=== PATIENT | female | born 1965 | race Caucasian/White ===

== ENCOUNTER 2016-11-12 07:39 | Emergency (ER) | payer SELFPAY ==
[~2016-11-12] VITALS: Ht 162.6 cm; Wt 62.1 kg
[2016-11-12] MEDS ORDERED: METOCLOPRAMIDE HCL 10 MG/2 ML VIAL. IV ONE (08:30)
[2016-11-12] MEDS ORDERED: IV NORMAL SALINE 500ML BAG 500 ML IV ONE (08:30)
[2016-11-12] MEDS ORDERED: DIPHENHYDRAMINE 50 MG/ML VIAL IVP ONE (08:30)
--- NOTE | 2016-11-12 08:43 | PHYS DOC ---
Past Medical History Past Medical History: Anemia, Bronchitis Additional Past Medical Histor: Breast Cancer, pleurisy Past Surgical History: Alcohol Use: Rarely Drug Use: Methamphetamine Adult General Chief Complaint Chief Complaint: ABDOMINAL PAIN HPI HPI Patient is a 51 year old female presents the emergency room with a complaint of upper abdominal pain and nausea and vomiting and began within the past 24 hours. Patient states last by mouth intake was approximately 2 days ago. Last bowel movement was a diarrheal bowel movement within the past 5 hours. Patient denies hematemesis or coffee-ground stools. She denies any black or bloody bowel movements. Patient denies any history gastrointestinal diseases or bowel obstructions. She states that she has only had 4 C-sections in the past. Patient admits to smoking methamphetamines within the past 48 hours. She states that she began using methamphetamines approximately 3 years ago and wants to quit. Of incidental note: Patient is here with an adult female that she identifies as a family member with complaint of atraumatic left anterior rib pain. Review of Systems Review of Systems Constitutional: Denies fever or chills [] Eyes: Denies change in visual acuity, redness, or eye pain [] HENT: Denies nasal congestion or sore throat [] Respiratory: Denies cough or shortness of breath [] Cardiovascular: No additional information not addressed in HPI [] GI: Patient reports upper abdominal pain. Patient denies this bilious, bloody or coffee-ground emesis. Patient denies black or bloody stools. : Denies dysuria or hematuria [] Musculoskeletal: Denies back pain or joint pain [] Integument: Denies rash or skin lesions [] Neurologic: Denies headache, focal weakness or sensory changes [] Endocrine: Denies polyuria or polydipsia [] Current Medications Current Medications Current Medications Medications (Trade) Dose Ordered Sig/Zofia Start Time Stop Time Status Last Admin Dose Admin Diphenhydramine HCl (Benadryl) 25 mg 1X ONCE 11/12/16 08:30 11/12/16 08:40 DC 11/12/16 09:34 25 MG Metoclopramide HCl (Reglan) 10 mg 1X ONCE 11/12/16 08:30 11/12/16 08:40 DC 11/12/16 09:34 10 MG Sodium Chloride (Iv Sodium Chloride 0.9% 500ml Bag) 500 ml @ 500 mls/hr 1X ONCE 1/8/17 08:30 11/12/16 09:29 DC 11/12/16 09:33 500 MLS/HR Allergies Allergies Allergies Coded Allergies Type Severity Reaction Last Updated Verified No Known Drug Allergies 11/12/16 No Physical Exam Physical Exam Constitutional: Well developed, well nourished, no acute distress, non-toxic appearance. HENT: Normocephalic, atraumatic, bilateral external ears normal, oropharynx moist, no oral exudates, nose normal. [] Eyes: PERRLA, EOMI, conjunctiva normal, no discharge. [] Neck: Normal range of motion, no tenderness, supple, no stridor. [] Cardiovascular:Heart rate regular rhythm, no murmur [] Lungs & Thorax: Bilateral breath sounds clear to auscultation [] Abdomen: Abdomen is soft and nondistended. There are hyperactive bowel sounds normal quadrants. There is no palpable defect to the abdominal wall or pulsatile mass. There is tenderness to palpation in the epigastric and right upper quadrant region. Skin: Warm, dry, no erythema, no rash. [] Back: No tenderness, no CVA tenderness. [] Extremities: No tenderness, no cyanosis, no clubbing, ROM intact, no edema. [] Neurologic: Alert and oriented X 3, normal motor function, normal sensory function, no focal deficits noted. [] Psychologic: Affect normal, judgement normal, mood normal. [] Current Patient Data Vital Signs Vital Signs Date Time Temp Pulse Resp B/P Pulse Ox O2 Delivery O2 Flow Rate FiO2 11/12/16 08:30 97.6 86 18 126/86 98 Room Air 97.6 Lab Values Laboratory Tests Test 11/12/16 09:14 White Blood Count 5.5x10^3/uL (4.0-11.0) Red Blood Count 4.30x10^6/uL (3.50-5.40) Hemoglobin 13.9g/dL (12.0-15.5) Hematocrit 40.9% (36.0-47.0) Mean Corpuscular Volume 95fL (79-100) Mean Corpuscular Hemoglobin 32pg (25-35) Mean Corpuscular Hemoglobin Concent 34g/dL (31-37) Red Cell Distribution Width 13.1% (11.5-14.5) Platelet Count 301x10^3/uL (140-400) Neutrophils (%) (Auto) 56% (31-73) Lymphocytes (%) (Auto) 32% (24-48) Monocytes (%) (Auto) 9% (0-9) Eosinophils (%) (Auto) 3% (0-3) Basophils (%) (Auto) 1% (0-3) Neutrophils # (Auto) 3.1x10^3uL (1.8-7.7) Lymphocytes # (Auto) 1.8x10^3/uL (1.0-4.8) Monocytes # (Auto) 0.5x10^3/uL (0.0-1.1) Eosinophils # (Auto) 0.2x10^3/uL (0.0-0.7) Basophils # (Auto) 0.0x10^3/uL (0.0-0.2) Urine Collection Type Void Urine Color Yellow Urine Clarity Clear Urine pH 5.5 Urine Specific [place] 1.025 Urine Protein Negativemg/dL (NEG-TRACE) Urine Glucose (UA) Negativemg/dL (NEG) Urine Ketones (Stick) Negativemg/dL (NEG) Urine Blood Negative (NEG) Urine Nitrite Negative (NEG) Urine Bilirubin Negative (NEG) Urine Urobilinogen Dipstick 0.2mg/dL (0.2 mg/dL) Urine Leukocyte Esterase Negative (NEG) Urine RBC 0/HPF (0-2) Urine WBC 0/HPF (0-4) Urine Squamous Epithelial Cells Mod/LPF Urine Bacteria Few/HPF (0-FEW) Urine Mucus Mod/LPF Sodium Level 140mmol/L (136-145) Potassium Level 3.7mmol/L (3.5-5.1) Chloride Level 102mmol/L (98-107) Carbon Dioxide Level 29mmol/L (21-32) Anion Gap 9 (6-14) Blood Urea Nitrogen 12mg/dL (7-20) Creatinine 0.6mg/dL (0.6-1.0) Estimated GFR (Cockcroft-Gault) 105.4 BUN/Creatinine Ratio 20 (6-20) Glucose Level 81mg/dL (70-99) Calcium Level 8.8mg/dL (8.5-10.1) Total Bilirubin 0.3mg/dL (0.2-1.0) Aspartate Amino Transferase (AST) 31U/L (15-37) Alanine Aminotransferase (ALT) 44U/L (14-59) Alkaline Phosphatase 100U/L (46-116) Total Protein 7.7g/dL (6.4-8.2) Albumin 3.9g/dL (3.4-5.0) Albumin/Globulin Ratio 1.0 (1.0-1.7) Lipase 168U/L (73-393) Urine Opiates Screen Neg (NEG) Urine Methadone Screen Neg (NEG) Urine Barbiturates Neg (NEG) Urine Phencyclidine Screen Neg (NEG) Urine Amphetamine/Methamphetamine Pos (NEG) Urine Benzodiazepines Screen Neg (NEG) Urine Cocaine Screen Neg (NEG) Urine Cannabinoids Screen Pos (NEG) Urine Ethyl Alcohol Neg (NEG) Laboratory Tests 11/12/16 09:14 Laboratory Tests 11/12/16 09:14 EKG EKG Twelve-lead EKG was performed at 931 shows a normal sinus rhythm with a rate of 67 bpm. Patient has no ST elevation or depression. MI interval is 80 ms with a QRS sikh of 76 ms and a QT duration 386 ms. Radiology/Procedures Radiology/Procedures [facility] [address] [place], [place] [id number] IMAGING REPORT Signed PATIENT: LEDY CASSIDY ACCOUNT: [id number] : 1965 LOCATION: ER AGE: 51 SEX: F EXAM STATUS: REG ER ORD. PHYSICIAN: REESE COLES REASON: epigastric/RUQ pain with vomiting PROCEDURE: ABDOMEN LTD Ultrasound of the abdomen limited. History: Epigastric right upper quadrant pain with vomiting Ultrasound was used to evaluate the right upper quadrant of the abdomen. Pancreas was normal in appearance. Vena cava is unremarkable. Liver is normal in size and appearance without a focal lesion. Gallbladder was normal without gallstones or gallbladder wall thickening. Common duct was normal measuring 4 mm. Right kidney is 11.8 cm in length without a mass or hydronephrosis. Impression: 1. Negative ultrasound of the liver, gallbladder and right upper quadrant. DICTATED and SIGNED BY: NATALIE LAGOS MD DATE: 11/12/16914 CC: REESE COLES; NO PCP ~ Course & Med Decision Making Course & Med Decision Making Patient is an uneventful stay in the emergency department. She is not called out for any complaints of increased abdominal pain. The been no episodes of nausea or vomiting. Ultrasound of her upper abdominal region shows no evidence of gallbladder wall thickening coming cholecystitis or gallstones. Patient does not have a fatty liver. Laboratory tests, with the exception of her urine drug screen, normal here today. Dragon Disclaimer Dragon Disclaimer This electronic medical record was generated, in whole or in part, using a voice recognition dictation system. Departure Departure Impression: Primary Impression: Abdominal pain Additional Impression: Polysubstance abuse Disposition: 01 HOME, SELF-CARE Condition: GOOD Patient Instructions: Abdominal Pain, Ihno-bi-Xmpr, Substance Abuse-Brief Additional Instructions: 1. The ultrasound of your abdomen and your laboratory test, with the exception of your urine drug screen, are normal here today. 2. Your urine drug screen does show the presence of methamphetamines and marijuana in your system. Marijuana is known to cause nausea and vomiting as it affects the way your stomach manages the food that she take in. 3. It is in your best interest to stop these behaviors. 4. Take the medication as prescribed. Clear liquids for the next 24 hours. 5. Review these discharge instructions; especially reasons to return to the emergency department. 6. A pamphlet is provided to you that has a list of primary care doctor's offices in the area in which she may call for follow-up assistance. Scripts Ondansetron (Zofran Odt)4 Mg Tab.rapdis4 Mg PO Q8HRS PRN NAUSEA/VOMITING #10 TAB Prov:REESE COLES 11/12/16 Problem Qualifiers REESE COLES Nov 12, 2016 08:43
--- NOTE | 2016-11-12 08:56 | ACF ---
Admission Forms Criteria ABDOMINAL PAIN Clinical Indications for Admission to Inpatient Care (Place 'X' for any and all applicable criteria): Admission is indicated for ANY ONE of the following(1)(2)(3)(4)(5): [X]I. Inpatient admission required rather than observation care (Also use Abdominal Pain: Observation Care, as appropriate) because of ANY ONE of the following: [X]a) Severe pain requiring acute inpatient management [ ]b) Identification of etiology/finding that requires inpatient care (eg, aortic dissection, free air) [ ]c) Absent bowel sounds with complete ileus(6) [ ]d) Suspected toxic megacolon [ ]e) Severe electrolyte abnormalities requiring inpatient care [ ]f) High fever or infection requiring inpatient admission as indicated by ANY ONE of following(7)(8): [ ] i) Appropriate outpatient or observational care antimicrobial treatment unavailable, not effective, or not feasible [ ] ii) Documented bacteremia [ ] iii) Temperature > 104.9 degrees F (oral) [ ] iv) T >103.1 F (oral) or < 96.8 F(rectal) that does not respond to all emergency treatment measures [ ]g) Signs of intestinal obstruction [B] [ ]h) Hemodynamic instability [ ]i) IV fluid to replace significant ongoing losses (greater than 3 L/m2 per day) (12)(13) [ ]j) Percutaneous or open drainage (eg, abscess, biliary tract ) procedures [ ]k) Parenteral nutrition regimen that must be implemented on inpatient basis [ ]l) Other condition,treatment or monitoring requiring inpatient admission. [ ]II. Peritoneal signs present [ ]III. Surgery needed that cannot be performed on an ambulatory basis. [ ]IV. Evaluation requires patient to not eat or drink for extended period ( eg, more than 24 hours). [ ]V. Contraindications and/or Inappropriate clinical situations for Observational Care in patients with abdominal pain, when ANY ONE of the following is required: [ ]a) Thorough evaluation is required to prevent catastrophic events due to delays in diagnosing (e.g.Mesenteric ischemia) 1,3 [ ]b) Patient with severe pathology or with chronic symptoms unlikely to improve in the ED stay (3) [ ]. General contraindications and/or Inappropriate clinical situations for Observational Care in patients with abdominal pain, when ANY ONE of the following is required: [ ]a) Prediction of prolongation of LOS based on ANY ONE of the following may be considered as a contraindication for observational care 2, 3, 4, 5, 6, 7, 8, 9, 10, 11 [ ]i) Age > 65 yrs. [ ]ii) Patient arriving by ambulance [ ]iii) Patient with high acuity [ ]iv) Patient requiring vital sign monitoring [ ]v) Patient on IV medication [ ]b) Systolic blood pressures 180mmHg 3,12 [ ]c) Patient with altered mental status including delirium and other alteration of consciousness, (3) [ ]d) Patient whose discharge disposition will be to a nursing home home or rehabilitation home should not be managed in Emergency Department Observation Unit. CMS rule requires 3 days hospital stay before such placement.3,13 [ ]e) Patient with failure to thrive due to broad array of etiologies 3,16,17 [ ]f) Inability to ambulate 3,14 Extended stay beyond goal length of stay may be needed for(2)(3): [ ]a) Persistent abdominal pain with suspected intra-abdominal process [ ]b) Diagnosed condition requiring continued stay (e.g., pancreatitis, complicated diverticulitis) [ ]c) Surgery (e.g., colectomy) The original [employer] content created by [employer] has been revised. The portions of the content which have been revised are identified through the use of italic text or in bold, and [facility] has neither reviewed nor approved the modified material.All other unmodified content is copyright [employer]. Please see references footnoted in the original [employer] edition 2016 Admission Criteria Met?: Yes SAHMA REYES Nov 12, 2016 08:56
--- NOTE | 2016-11-12 09:19 | RAD ---
Ultrasound of the abdomen limited. History: Epigastric right upper quadrant pain with vomiting Ultrasound was used to evaluate the right upper quadrant of the abdomen. Pancreas was normal in appearance. Vena cava is unremarkable. Liver is normal in size and appearance without a focal lesion. Gallbladder was normal without gallstones or gallbladder wall thickening. Common duct was normal measuring 4 mm. Right kidney is 11.8 cm in length without a mass or hydronephrosis. Impression: 1. Negative ultrasound of the liver, gallbladder and right upper quadrant.
[2016-11-12 09:37] LABS: CALCIUM 8.8 mg/dL (8.5-10.1); CREATININE 0.6 mg/dL (0.6-1.0); GFR 105.4; POTASSIUM 3.7 mmol/L (3.5-5.1)
[2016-11-12 09:38] LABS: BASO % 1 % (0-3); EOS % 3 % (0-3); HEMATOCRIT 40.9 % (36.0-47.0); HEMOGLOBIN 13.9 g/dL (12.0-15.5); LYMPH # 1.8 x10^3/uL (1.0-4.8); LYMPH % 32 % (24-48); MEAN CORPUSCULAR HEMOGLOBIN 32 pg (25-35); MEAN CORPUSCULAR HGB CONC 34 g/dL (31-37); MEAN CORPUSCULAR VOLUME 95 fL (79-100); MONO % 9 % (0-9); NEUT % 56 % (31-73); PLATELET COUNT 301 x10^3/uL (140-400); RED CELL DISTRIBUTION WIDTH 13.1 % (11.5-14.5); WHITE BLOOD COUNT 5.5 x10^3/uL (4.0-11.0)
[2016-11-12 09:48] LABS: ALBUMIN 3.9 g/dL (3.4-5.0); BARBITURATES NEG (NEG); BENZODIAZEPINES NEG (NEG); CANNABINOIDS POS (NEG); COCAINE NEG (NEG); METHADONE NEG (NEG); OPIATES NEG (NEG); PHENCYCLIDINE NEG (NEG); TOTAL BILIRUBIN 0.3 mg/dL (0.2-1.0); TOTAL PROTEIN 7.7 g/dL (6.4-8.2)
[2016-11-12 09:50] LABS: ETHANOL, URINE NEG (NEG)
[2016-11-12 09:53] LABS: BILIRUBIN,URINE NEGATIVE (NEG); GLUCOSE,URINE NEGATIVE (NEG); NITRITE,URINE NEGATIVE (NEG); PH,URINE 5.5; PROTEIN,URINE NEGATIVE (NEG-TRACE); UROBILINOGEN,URINE 0.2 mg/dL (0.2 mg/dL)
[2016-11-12 09:54] LABS: BACTERIA,URINE FEW /HPF (0-FEW); RBC,URINE 0 /HPF (0-2); SQUAMOUS EPITHELIAL CELL,UR MOD /LPF; WBC,URINE 0 /HPF (0-4)
[2016-11-12] MEDS ORDERED: ONDA4TAB10 PO (10:18)
--- NOTE | 2016-11-12 10:29 | EKG ---
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
[2016-11-12 11:40] VITALS: BP 103/60
== END 2016-11-12 11:56 | disposition home or self-care (01) ==
LOC: ER 07:39
DX: R10.11 Right upper quadrant pain (principal); F19.10 Other psychoactive substance abuse, uncomplicated; R11.2 Nausea with vomiting, unspecified; F15.10 Other stimulant abuse, uncomplicated
CPT/HCPCS: 36415; 76705; 80053; 81001; 83690; 85027; 93005; 96361; 96374; 96375; 99285; G0481; J1200; J2765; J7040

== ENCOUNTER 2016-12-02 17:44 | Emergency (ER) | payer SELFPAY ==
[~2016-12-02] VITALS: Ht 162.6 cm; Wt 62.1 kg
[~2016-12-02 17:44] MED LIST: ONDA4TAB10 PO
[2016-12-02] MEDS ORDERED: KETOROLAC TROMETHAMINE 60 MG/2 ML SYRINGE. IM ONE (18:45)
[2016-12-02] MEDS ORDERED: IPRATRPIUM/ALBUTEROL 0.5/2.5MG 3 ML NEBU. NEB ONE (18:45)
[2016-12-02] MEDS ORDERED: ONDANSETRON ODT 4 MG TAB.RAPDIS PO ONE (18:45)
--- NOTE | 2016-12-02 18:51 | PHYS DOC ---
Past Medical History Past Medical History: Anemia, Bronchitis Additional Past Medical Histor: Breast Cancer, pleurisy Past Surgical History: Alcohol Use: None Drug Use: Marijuana Adult General Chief Complaint Chief Complaint: Congestion HPI HPI 51-year-old female who's had worsening cough and congestion that she states all started about 3 weeks ago. She's had nausea and vomiting yesterday as well. She denies any vomiting today but has little to eat or drink. She also rates she has significant chest wall pain worse with cough and deep breathing. She also complains of some mild left earache patient denies any health problems other than chronic bronchitis. She states she smokes several cigarettes a day. 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 She states she has not used meth since that time. She has not taken any medications for her symptoms. Review of Systems Review of Systems Constitutional: Has fever or chills [] Eyes: Denies change in visual acuity, redness, or eye pain [] HENT: Denies nasal congestion or sore throat [] Respiratory: Has cough, has shortness of breath [] Cardiovascular: No additional information not addressed in HPI [] GI: Denies abdominal pain, has nausea, has vomiting, denies bloody stools or diarrhea [] : Denies dysuria or hematuria [] Musculoskeletal: Denies back pain or joint pain [] Integument: Denies rash or skin lesions [] Neurologic: Denies headache, focal weakness or sensory changes [] Endocrine: Denies polyuria or polydipsia [] Current Medications Current Medications Current Medications Medications (Trade) Dose Ordered Sig/[facility] Start Time Stop Time Status Last Admin Dose Admin Albuterol/ Ipratropium (Duoneb) 3 ml 1X ONCE 12/02/16 18:45 12/02/16 18:46 DC 12/02/16 18:53 3 ML Ketorolac Tromethamine (Toradol Im) 60 mg 1X ONCE 12/02/16 18:45 12/02/16 18:46 DC 12/02/16 18:49 60 MG Ondansetron HCl (Zofran Odt) 4 mg 1X ONCE 12/02/16 18:45 12/02/16 18:46 DC 12/02/16 18:49 4 MG Allergies Allergies Allergies Coded Allergies Type Severity Reaction Last Updated Verified No Known Drug Allergies 11/12/16 No Physical Exam Physical Exam Constitutional: Well developed, well nourished, no acute distress, non-toxic appearance. [] HENT: Normocephalic, atraumatic, bilateral external ears normal, oropharynx moist, no oral exudates, nose normal, left sided otitis media with injected TM on left. [] Eyes: PERRLA, EOMI, conjunctiva normal, no discharge. [] Neck: Normal range of motion, no tenderness, supple, no stridor. [] Cardiovascular:Heart rate regular rhythm, no murmur [] Lungs & Thorax: Bilateral breath sounds clear to auscultation [] Abdomen: Bowel sounds normal, soft, no tenderness, no masses, no pulsatile masses. [] Skin: Warm, dry, no erythema, no rash. [] Back: No tenderness, no CVA tenderness. [] Extremities: No tenderness, no cyanosis, no clubbing, ROM intact, no edema. [] Neurologic: Alert and oriented X 3, normal motor function, normal sensory function, no focal deficits noted. [] Psychologic: Affect normal, judgement normal, mood normal. [] Current Patient Data Vital Signs Vital Signs Date Time Temp Pulse Resp B/P Pulse Ox O2 Delivery O2 Flow Rate FiO2 12/02/16 19:52 92 108/54 97 Room Air 12/02/16 18:24 17 12/02/16 18:00 97.6 97.6 Lab Values Laboratory Tests Test 12/02/16 18:53 Influenza Type A Antigen Negative (NEGATIVE) Influenza Type B Antigen Negative (NEGATIVE) EKG EKG EKG as interpreted by me shows a sinus rhythm with a rate of 85 bpm. There are no ischemic findings on this EKG. Radiology/Procedures Radiology/Procedures One view of the chest as interpreted by me does not reveal an acute cardiopulmonary process Course & Med Decision Making Course & Med Decision Making Pertinent Labs and Imaging studies reviewed. (See chart for details) This 81-year-old female who's having ongoing chest pain worse with deep breathing and cough has been there for the last several weeks will receive a portable view of her chest rule out any abnormality. Her EKG appeared unremarkable. Flu swabs are negative. I do not see an indication at this time to perform any laboratory workup. I will administer an IM Toradol and Zofran this patient. Flu swabs be taken. Ultimately she'll be discharged home with a course of anti-inflammatories, albuterol inhaler, amoxicillin for a left otitis media, and Tessalon Perles for cough. Upon my final reassessment, the patient felt much improved and she'll be discharged with the prescriptions already described. She will follow closely with her primary doctor as discussed. Jihan Disclaimer Dragon Disclaimer This electronic medical record was generated, in whole or in part, using a voice recognition dictation system. Departure Departure Impression: Primary Impression: Cough Additional Impression: Nausea & vomiting Disposition: 01 HOME, SELF-CARE Admitting Physician: Other Condition: STABLE Referrals: NO PCP (PCP) Patient Instructions: Cough, Adult, [id number] Additional Instructions: Please take your medications as prescribed. Return to the ER if you develop any worsening of your symptoms. Follow up closely with your primary doctor in 2-3 days for your symptoms. Scripts Ibuprofen 800 Mg [id number] Mg PO PRN Q6HRS PRN INFLAMMATION #20 TAB Prov:VIRGILIO ARITA DO 12/02/16 Amoxicillin 500 Mg [id number] Mg PO BID #20 TAB Ref 0 Prov:VIRGILIO ARITA DO 12/02/16 Benzonatate (Tessalon Perle)100 Mg [id number] Mg PO TID PRN COUGH #15 CAP Prov:VIRGILIO ARITA DO 12/02/16 Ondansetron Hcl (Zofran)4 Mg Tablet4 Mg PO BID PRN NAUSEA/VOMITING #14 TAB Prov:VIRGILIO ARITA DO 12/02/16 Problem Qualifiers VIRGILIO ARITA DO Dec 02, 2016 18:51
[2016-12-02 19:36] LABS: OBC FLU VALID
[2016-12-02 19:52] VITALS: BP 108/54
[2016-12-02] MEDS ORDERED: BENZ100C PO (20:02)
[2016-12-02] MEDS ORDERED: ONDA4TAB7 PO (20:02)
[2016-12-02] MEDS ORDERED: AMOX500T PO (20:02)
[2016-12-02] MEDS ORDERED: IBUP-1060 PO (20:03)
--- NOTE | 2016-12-03 08:17 | RAD ---
EXAM: Chest, single view. HISTORY: Shortness of breath. COMPARISON: None. FINDINGS: A frontal view of the chest is obtained. There is no infiltrate, effusion or pneumothorax. The heart is normal in size. IMPRESSION: No acute pulmonary finding.
--- NOTE | 2016-12-03 12:04 | EKG ---
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
== END 2016-12-02 20:09 | disposition home or self-care (01) ==
LOC: ER 17:44
DX: R05 Cough (principal); R11.2 Nausea with vomiting, unspecified; R07.89 Other chest pain; R06.02 Shortness of breath; R09.81 Nasal congestion; H92.02 Otalgia, left ear; F17.210 Nicotine dependence, cigarettes, uncomplicated; F12.10 Cannabis abuse, uncomplicated
CPT/HCPCS: 71010; 87804; 93005; 94250; 94640; 96372; 99285; J1885; J7620; Q0162

== ENCOUNTER 2017-01-11 18:31 | Emergency (ER) | payer SELFPAY ==
[~2017-01-11] VITALS: Ht 162.6 cm; Wt 61.2 kg
[~2017-01-11 18:31] MED LIST changes: +AMOX500T PO; +BENZ100C PO; +IBUP-1060 PO; +ONDA4TAB7 PO
[2017-01-11 19:39] VITALS: BP 107/61
[2017-01-11] MEDS ORDERED: PREDNISONE 10 MG TABLET PO ONE (19:45)
[2017-01-11] MEDS ORDERED: ALBUTEROL SULFATE 2.5 MG/3 ML NEBU. NEB ONE (19:45)
[2017-01-11] MEDS ORDERED: PRED-220 PO (20:19)
[2017-01-11] MEDS ORDERED: PROAIR HFA8.5 GM INH (20:19)
--- NOTE | 2017-01-11 20:19 | PHYS DOC ---
Past Medical History Past Medical History: Anemia, Bronchitis, Depression, Other Additional Past Medical Histor: Breast Cancer, pleurisy, drug abuse, joint pain Past Surgical History: Alcohol Use: None Drug Use: None Adult General Chief Complaint Chief Complaint: CHEST PAIN-NON CARDIAC NATURE HPI HPI Patient is a 51 year old female who presents with complaint of left-sided chest pain. Patient states that she is having upper chest wall pain from coughing. Patient has had persistent cough for the past 3 weeks. Patient denies any associated fevers. Patient's cough has been nonproductive. Patient states that she has had mild shortness of breath and wheezing. Patient has history of recurrent bronchitis. Patient states that she is a long-time cigarette smoker. Patient does not follow the primary doctor at this time. Patient rates her pain in her chest as 8 out of 10 with coughing. Patient denies any substernal chest pain, nausea, diaphoresis, or shortness of breath at rest. The patient has been taking ibuprofen and [id number] cough medication help with her symptoms with no significant relief. Review of Systems Review of Systems Constitutional: Denies fever or chills [] Eyes: Denies change in visual acuity, redness, or eye pain [] HENT: Denies nasal congestion or sore throat [] Respiratory: Cough, shortness of breath with exertion [] Cardiovascular: Left sided chest pain [] GI: Denies abdominal pain, nausea, vomiting, bloody stools or diarrhea [] : Denies dysuria or hematuria [] Musculoskeletal: Denies back pain or joint pain [] Integument: Denies rash or skin lesions [] Neurologic: Denies headache, focal weakness or sensory changes [] Current Medications Current Medications Current Medications Medications (Trade) Dose Ordered Sig/Zofia Start Time Stop Time Status Last Admin Dose Admin Albuterol Sulfate (Ventolin Neb Soln) 5 mg 1X ONCE 01/11/17 19:45 01/11/17 19:46 DC 01/11/17 20:09 5 MG Prednisone (Prednisone) 50 mg 1X ONCE 01/11/17 19:45 01/11/17 19:46 DC 01/11/17 19:57 50 MG Allergies Allergies Allergies Coded Allergies Type Severity Reaction Last Updated Verified No Known Drug Allergies 11/12/16 No Physical Exam Physical Exam Constitutional: Alert, afebrile, appears in mild discomfort. [] HENT: Normocephalic, atraumatic, bilateral external ears normal, oropharynx moist, no oral exudates, nose normal. [] Eyes: PERRLA, EOMI, conjunctiva normal, no discharge. [] Neck: Normal range of motion, no tenderness, supple, no stridor. [] Cardiovascular:Heart rate regular rhythm, no murmur [] Lungs & Thorax: Moderately her strict air movement bilaterally, expiratory wheezes bilaterally, left anterior chest wall tenderness to palpation causing reproducible pain [] Abdomen: Bowel sounds normal, soft, no tenderness, no masses, no pulsatile masses. [] Skin: Warm, dry, no erythema, no rash. [] Back: No tenderness, no CVA tenderness. [] Extremities: No tenderness, no cyanosis, no clubbing, ROM intact, no edema. [] Neurologic: Alert and oriented X 3, normal motor function, normal sensory function, no focal deficits noted. [] Current Patient Data Vital Signs Vital Signs Date Time Temp Pulse Resp B/P Pulse Ox O2 Delivery O2 Flow Rate FiO2 01/11/17 20:09 95 Room Air 01/11/17 19:39 82 22 107/61 01/11/17 18:46 97.7 97.7 EKG EKG Interpreted by me: Heart rate 80, sinus rhythm, normal intervals, normal axis, no acute ST/T-wave abnormalities present [] Radiology/Procedures Radiology/Procedures Two-view chest x-ray interpreted by me: No infiltrate, mild to moderate hyperexpansion of bilateral lung mitchell, no effusion, normal cardiac silhouette [] Course & Med Decision Making Course & Med Decision Making Pertinent Labs and Imaging studies reviewed. (See chart for details) Patient was given albuterol therapy and oral prednisone in the emergency department. I spoke with patient regarding likely presence of undiagnosed COPD in this patient given the patient's long history of tobacco use, chronic persistent cough, and chest x-ray findings. The patient will be continued on prednisone and albuterol as outpatient. I counseled the patient on smoking cessation and explained to her the potential link between her smoking and her current lung problems. Patient voiced understanding of this. The patient was recommended follow-up with primary care in the next 3-5 days and return to emergency department for any worsening symptoms. Patient voiced understanding and in agreement with treatment plan. Dragon Disclaimer Dragon Disclaimer This electronic medical record was generated, in whole or in part, using a voice recognition dictation system. Departure Departure Impression: Primary Impression: Bronchitis Additional Impression: Chest wall pain Disposition: 01 HOME, SELF-CARE Condition: IMPROVED Referrals: NO PCP (PCP) Patient Instructions: Bronchitis Additional Instructions: Follow-up with your primary doctor in the next 3-5 days if symptoms are not improving. Return to the emergency department for any worsening symptoms. Scripts Albuterol Sulfate (Proair Hfa Inhaler)8.5 Gm Hfa.aer.ad2 Puff INH Q4-6HRS PRN SHORTNESS OF BREATH #1 INHALER Ref 0 Prov:JOHN SURESH MD 01/11/17 Prednisone 10 Mg [id number] Mg PO UD PREDNISONE TAPER #39 TAB Ref 0 Take 3 tablets by mouth twice a day for 3 days, then take 2 tablets by mouth twice a day for 3 days, then take 1 tablet by mouth twice a day for 3 days, then take 1 tablet by mouth daily x 3 days, then stop. Prov:JOHN SURESH MD 01/11/17 Problem Qualifiers JOHN SURESH MD Jan 11, 2017 20:19
--- NOTE | 2017-01-12 06:31 | EKG ---
[facility] [address] [place] [address] Test Date: 2017-01-11 Test Time: 18:44:28 Pat Name: LEDY CASSIDY Department: Room: Gender: F Car Dumper: : 1965 Requested By: JOHN SURESH Order Number: [id number] Reading MD: Measurements Intervals [place] Rate: 80 P: 55 CA: 192 QRS: 66 QRSD: 80 T: 76 QT: 386 QTc: 449 Interpretive Statements SINUS RHYTHM QRS(T) CONTOUR ABNORMALITY CONSIDER ANTEROLATERAL MYOCARDIAL DAMAGE RI6.01 Unconfirmed report No previous ECG available for comparison
--- NOTE | 2017-01-12 07:59 | RAD ---
Chest, 2 views, 01/11/2017: History: Cough and chest pain Comparison is made to a study from 12/02/2016. The heart size and pulmonary vascularity are normal. No pulmonary infiltrates are seen. There is no evidence of pleural fluid. Mild spurring is present in the spine. IMPRESSION: No acute cardiopulmonary abnormality is detected.
== END 2017-01-11 20:39 | disposition home or self-care (01) ==
LOC: ER 18:31
DX: J40 Bronchitis, not specified as acute or chronic (principal); F17.210 Nicotine dependence, cigarettes, uncomplicated; F32.9 Major depressive disorder, single episode, unspecified
CPT/HCPCS: 71020; 93005; 94250; 94640; 99284; J7512

== ENCOUNTER 2017-03-28 12:47 | Emergency (ER) | payer SELFPAY ==
[~2017-03-28] VITALS: Ht 162.6 cm; Wt 81.6 kg
[~2017-03-28 12:47] MED LIST changes: +PRED-220 PO; +PROAIR HFA8.5 GM INH
[2017-03-28 13:38] VITALS: BP 140/77
[2017-03-28] MEDS ORDERED: IBUPROFEN 600 MG TABLET. PO ONE ×2 (13:45→13:51)
--- NOTE | 2017-03-28 13:54 | PHYS DOC ---
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 She does report a history of psoriasis but not any significant history of arthritis yet. Denies diabetes. Denies any fever. She did have some soft tissue swelling of her feet yesterday and that improved with elevation of the feet. She was at work today and they noted that she was limping and so they've asked that she get evaluated in the emergency department today. Review of Systems Review of Systems Constitutional: Denies fever or chills [] Eyes: Denies change in visual acuity, redness, or eye pain [] HENT: Denies nasal congestion or sore throat [] Respiratory: Denies cough or shortness of breath [] Cardiovascular: No additional information not addressed in HPI [] GI: Denies abdominal pain, nausea, vomiting, bloody stools or diarrhea [] : Denies dysuria or hematuria [] Musculoskeletal: Denies back pain or joint pain [] Integument: Denies rash or skin lesions [] Neurologic: Denies headache, focal weakness or sensory changes [] Endocrine: Denies polyuria or polydipsia [] Current Medications Current Medications Current Medications Medications (Trade) Dose Ordered Sig/Zofia Start Time Stop Time Status Last Admin Dose Admin Ibuprofen (Motrin) 600 mg STK-MED ONCE 03/28/17 13:51 03/28/17 13:52 DC Allergies Allergies Allergies Coded Allergies Type Severity Reaction Last Updated Verified No Known Drug Allergies 11/12/16 No Physical Exam Physical Exam Constitutional: Well developed, well nourished, no acute distress, non-toxic appearance. [] HENT: Normocephalic, atraumatic, bilateral external ears normal, oropharynx moist, no oral exudates, nose normal. [] Eyes: PERRLA, EOMI, conjunctiva normal, no discharge. [] Neck: Normal range of motion, no tenderness, supple, no stridor. [] Cardiovascular:Heart rate regular rhythm, no murmur [] Lungs & Thorax: Bilateral breath sounds clear to auscultation [] Abdomen: Bowel sounds normal, soft, no tenderness, no masses, no pulsatile masses. [] Skin: Warm, dry, no erythema, no rash. [] Back: No tenderness, no CVA tenderness. [] Extremities: No tenderness, no cyanosis, no clubbing, ROM intact, no edema. [ Examination of bilateral feet reveal 2+ pulses in the foot and ankle, no soft tissue swelling or redness, mild tenderness to palpation, no bruising.] Neurologic: Alert and oriented X 3, normal motor function, normal sensory function, no focal deficits noted. [] Psychologic: Affect normal, judgement normal, mood normal. [] Current Patient Data Vital Signs Vital Signs Date Time Temp Pulse Resp B/P (MAP) Pulse Ox O2 Delivery O2 Flow Rate FiO2 03/28/17 13:38 97.6 78 18 140/77 (98) 95 Room Air 97.6 Lab Values Laboratory Tests Test 03/28/17 13:47 Glucose (Fingerstick) 121 mg/dL (70-99) H Accu-Chek 121 EKG EKG [] Radiology/Procedures Radiology/Procedures Bilateral foot x-rays negative for fracture or dislocation [] Course & Med Decision Making Course & Med Decision Making Pertinent Labs and Imaging studies reviewed. (See chart for details) Etiology of pain is likely psoriatic arthritis. Exclude diabetic neuropathy which we did do with blood sugar of 121, x-rays to exclude fractures or Charcot joint or severe degenerative arthritis. [] Dragon Disclaimer Dragon Disclaimer This electronic medical record was generated, in whole or in part, using a voice recognition dictation system. Departure Departure Impression: Primary Impression: Psoriatic arthritis Additional Impression: Bilateral foot pain Disposition: HOME, SELF-CARE Condition: STABLE Referrals: NO PCP (PCP) Scripts Ibuprofen (IBUPROFEN) 600 Mg Tablet 600 MG PO PRN Q8HRS Y for INFLAMMATION for 10 Days, #30 TAB Prov: JOHN GOLDBERG MD 03/28/17 Problem Qualifiers JOHN GOLDBERG MD March 28, 2017 13:54
--- NOTE | 2017-03-28 14:09 | RAD ---
Bilateral feet, 6 views, 03/28/2017: History: Foot pain No fracture or dislocation is identified. No destructive bony lesion is seen. There is only minimal spurring at the midfoot level. There is mild subcutaneous edema bilaterally. IMPRESSION: No acute bony abnormality is detected.
[2017-03-28] MEDS ORDERED: IBUP-1007 PO (15:19)
== END 2017-03-28 15:24 | disposition home or self-care (01) ==
LOC: ER 12:47
DX: L40.50 Arthropathic psoriasis, unspecified (principal); M79.671 Pain in right foot; M79.672 Pain in left foot; J44.9 Chronic obstructive pulmonary disease, unspecified; F32.9 Major depressive disorder, single episode, unspecified; M19.90 Unspecified osteoarthritis, unspecified site; F17.200 Nicotine dependence, unspecified, uncomplicated
CPT/HCPCS: 73630; 82962; 99285

== ENCOUNTER 2017-04-07 19:15 | Emergency (ER) | payer SELFPAY ==
[~2017-04-07] VITALS: Ht 162.6 cm; Wt 81.6 kg
[~2017-04-07 19:15] MED LIST changes: +IBUP-1007 PO
[2017-04-07 19:30] VITALS: BP 139/83
[2017-04-07] MEDS ORDERED: LIDOCAINE 1% / SOD BICARB 8.4% 20 ML VIAL. IJ ONE (19:45)
[2017-04-07] MEDS ORDERED: HYDROcodone/APAP 5/325MG 1 TAB TABLET PO ONE (19:45)
[2017-04-07] MEDS ORDERED: DIPHTH,PERTUSS(ACELL),TET TOX 0.5 ML DISP.SYRIN. VAX IM ONE (19:45)
[2017-04-07] MEDS ORDERED: ACET-704 PO (20:46)
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
== END 2017-04-07 20:55 | disposition home or self-care (01) ==
LOC: ER 19:15
DX: S51.011A Laceration without foreign body of right elbow, initial encounter (principal); J44.9 Chronic obstructive pulmonary disease, unspecified; M19.90 Unspecified osteoarthritis, unspecified site; L40.9 Psoriasis, unspecified; W17.89XA Other fall from one level to another, initial encounter; Y93.55 Activity, bike riding; Y92.89 Other specified places as the place of occurrence of the external cause; Y99.8 Other external cause status
CPT/HCPCS: 12002; 90471; 90715; 99283-25

== ENCOUNTER 2017-05-22 17:23 | Emergency (ER) | payer SELFPAY ==
[~2017-05-22] VITALS: Ht 162.6 cm; Wt 82.6 kg
[~2017-05-22 17:23] MED LIST changes: +ACET-704 PO
[2017-05-22] MEDS ORDERED: HYDROmorphone 2 MG/ML VIAL IV/SQ PRN (17:45)
[2017-05-22] MEDS ORDERED: IV NORMAL SALINE 1000ML BAG 1,000 ML IV SCH (17:45)
[2017-05-22] MEDS ORDERED: 0.9 % SODIUM CHLORIDE 10 ML DISP.SYRIN. IV PRN (17:45)
[2017-05-22] MEDS ORDERED: ASPIRIN CHEWABLE 81 MG TABLET. PO ONE (17:45)
[2017-05-22] MEDS ORDERED: NITROGLYCERIN SUBLINGUAL 0.4 MG BOTTLE OF 25. SL PRN (17:45)
[2017-05-22 17:57] LABS: BASO # 0.1 x10^3/uL (0.0-0.2); BASO % 1 % (0-3); EOS % 2 % (0-3); HEMATOCRIT 38.1 % (36.0-47.0); HEMOGLOBIN 13.2 g/dL (12.0-15.5); LYMPH # 3.4 x10^3/uL (1.0-4.8); LYMPH % 34 % (24-48); MEAN CORPUSCULAR HEMOGLOBIN 33 pg (25-35); MEAN CORPUSCULAR HGB CONC 35 g/dL (31-37); MEAN CORPUSCULAR VOLUME 96 fL (79-100); MONO % 7 % (0-9); NEUT % 57 % (31-73); PLATELET COUNT 275 x10^3/uL (140-400); RED BLOOD COUNT 3.97 x10^6/uL (3.50-5.40); RED CELL DISTRIBUTION WIDTH 12.7 % (11.5-14.5); WHITE BLOOD COUNT 10.2 x10^3/uL (4.0-11.0)
--- NOTE | 2017-05-22 18:12 | PHYS DOC ---
Past Medical History Past Medical History: Anxiety, Arthritis, Cancer, Depression, Other Additional Past Medical Histor: Psoriasis,BRONCHIAL ASTHMA,BREAST CA Past Surgical History: , Other Additional Past Surgical Histo: BREAST CA SX-LUMP REMOVED, L ARM, R FOOT Smoking: Cigarettes, Less than 1pk/day Additional Information: 0.5 PPD Alcohol Use: Rarely Drug Use: Methamphetamine, Other Social History Narrative: 9 MONTHS CLEAN Adult General Chief Complaint Chief Complaint: CHEST PAIN HPI HPI Is a pleasant 51-year-old female with a history of anxiety, depression and prior breast cancer who presents with chest pain that began 60 minutes prior to arrival. She was at home cleaning her house when she sat down to picker tender helper her dog and she felt a sudden onset of chest pain that began of her left breast. It radiates to her neck and her left shoulder. She describes as a chest pressure to perform the prior diagnosis of pleurisy she had some time ago. She denies any cough, URI symptoms, trauma or direct recent history of travel. Patient denies any fever, chills, nausea, vomiting, dizziness. She feels mildly anxious with the symptoms and she is worried that is her heart. The chest is worse with deep breathing and sitting forward. It is better with laying down flat. Normally this chest pain gets better with rest but this is different. This patient describes the pain as moderate 8 of 10. It does not really make her short of breath but it makes her splint because the pain is so severe. Differential diagnosis for chest pain: Pericarditis, myocarditis, endocarditis, pneumothorax, pneumonia, aortic dissection, esophageal spasm, esophagitis, peptic ulcer disease, acute coronary syndrome, mediastinitis, Boerhaave syndrome , musculoskeletal chest wall pain, costochondritis, intercostal strain, rib fracture, pulmonary contusion, pneumonitis, pleural effusion, pericardial effusion, pericardial tamponode, and pleurisy. He slept EKG, chest x-ray therapy workup done. Since she's had a prior history of cancer she has at risk for PE Review of Systems Review of Systems Constitutional: Denies fever or chills [] Eyes: Denies change in visual acuity, redness, or eye pain [] HENT: Denies nasal congestion or sore throat [] Respiratory: Denies cough or shortness of breath [] Cardiovascular: No additional information not addressed in HPI [] GI: Denies abdominal pain, nausea, vomiting, bloody stools or diarrhea [] : Denies dysuria or hematuria [] Musculoskeletal: Denies back pain or joint pain [] Integument: Denies rash or skin lesions [] Neurologic: Denies headache, focal weakness or sensory changes [] Endocrine: Denies polyuria or polydipsia [] Current Medications Current Medications Current Medications Medications (Trade) Dose Ordered Sig/Zofia Start Time Stop Time Status Last Admin Dose Admin Aspirin (Children'S Aspirin) 324 mg 1X ONCE 05/22/17 17:45 05/22/17 17:49 DC 05/22/17 18:04 324 MG Hydromorphone HCl (Dilaudid) 1 mg PRN Q15MIN PRN 05/22/17 17:45 05/23/17 17:44 05/22/17 18:05 1 MG Lorazepam (Ativan) 1 mg 1X ONCE 05/22/17 17:45 05/22/17 17:49 DC 05/22/17 18:04 1 MG Nitroglycerin (Nitrostat) 0.4 mg PRN Q5MIN PRN 05/22/17 17:45 05/23/17 17:44 05/22/17 18:04 0.4 MG Sodium Chloride (Normal Saline Flush) 10 ml QSHIFT PRN 05/22/17 17:45 05/22/17 18:07 10 ML Allergies Allergies Allergies Coded Allergies Type Severity Reaction Last Updated Verified No Known Drug Allergies 11/12/16 No Physical Exam Physical Exam Patient vital signs reviewed by me demonstrates borderline hypertension otherwise normal vitals. Constitutional: Well developed, well nourished, she feels very uncomfortable she is anxious and splinting. Her breathing secondary to pain. HENT: Normocephalic, atraumatic, bilateral external ears normal, oropharynx moist, no oral exudates, nose normal. [] Eyes: PERRLA, EOMI, conjunctiva normal, no discharge. [] Neck: Normal range of motion, no tenderness, supple, no stridor. [] Cardiovascular:Heart rate regular rhythm, no murmur [] was considerable chest wall pain left upper breast. There are no signs of trauma no redness or erythema no rash. Her pain is significantly increased with motion and direct pressure over the left shoulder. Lungs & Thorax: Bilateral breath sounds clear to auscultation [] Abdomen: Bowel sounds normal, soft, no tenderness, no masses, no pulsatile masses. [] Skin: Warm, dry, no erythema, no rash. [] Back: No tenderness, no CVA tenderness. [] Extremities: No tenderness, no cyanosis, no clubbing, ROM intact, no edema. [] Neurologic: Alert and oriented X 3, normal motor function, normal sensory function, no focal deficits noted. [] Psychologic: He is anxious. Judgment is normal Current Patient Data Vital Signs Vital Signs Date Time Temp Pulse Resp B/P (MAP) Pulse Ox O2 Delivery O2 Flow Rate FiO2 05/22/17 18:25 86 19 121/76 (91) 95 Room Air 05/22/17 17:28 97.7 97.7 Lab Values Laboratory Tests Test 05/22/17 17:45 05/22/17 19:15 White Blood Count 10.2 x10^3/uL (4.0-11.0) Red Blood Count 3.97 x10^6/uL (3.50-5.40) Hemoglobin 13.2 g/dL (12.0-15.5) Hematocrit 38.1 % (36.0-47.0) Mean Corpuscular Volume 96 fL (79-100) Mean Corpuscular Hemoglobin 33 pg (25-35) Mean Corpuscular Hemoglobin Concent 35 g/dL (31-37) Red Cell Distribution Width 12.7 % (11.5-14.5) Platelet Count 275 x10^3/uL (140-400) Neutrophils (%) (Auto) 57 % (31-73) Lymphocytes (%) (Auto) 34 % (24-48) Monocytes (%) (Auto) 7 % (0-9) Eosinophils (%) (Auto) 2 % (0-3) Basophils (%) (Auto) 1 % (0-3) Neutrophils # (Auto) 5.8 x10^3uL (1.8-7.7) Lymphocytes # (Auto) 3.4 x10^3/uL (1.0-4.8) Monocytes # (Auto) 0.7 x10^3/uL (0.0-1.1) Eosinophils # (Auto) 0.2 x10^3/uL (0.0-0.7) Basophils # (Auto) 0.1 x10^3/uL (0.0-0.2) Sodium Level 139 mmol/L (136-145) Potassium Level 4.4 mmol/L (3.5-5.1) Chloride Level 103 mmol/L (98-107) Carbon Dioxide Level 22 mmol/L (21-32) Anion Gap 14 (6-14) Blood Urea Nitrogen 10 mg/dL (7-20) Creatinine 0.5 mg/dL (0.6-1.0) L Estimated GFR (Cockcroft-Gault) 130.1 Glucose Level 92 mg/dL (70-99) Calcium Level 9.4 mg/dL (8.5-10.1) Magnesium Level 2.1 mg/dL (1.8-2.4) Total Bilirubin 0.2 mg/dL (0.2-1.0) Direct Bilirubin < 0.1 mg/dL (0.0-0.2) Aspartate Amino Transferase (AST) 23 U/L (15-37) Alanine Aminotransferase (ALT) 24 U/L (14-59) Alkaline Phosphatase 99 U/L (46-116) Creatine Kinase 185 U/L (26-192) Creatine Kinase MB (Mass) 0.6 ng/mL (0.0-3.6) Creatine Kinase MB Relative Index 0.3 % (0-4) Troponin I Quantitative < 0.017 ng/mL (0.000-0.055) AF-Exy-G-Type Natriuretic Peptide 51 pg/mL (0-124) Total Protein 7.5 g/dL (6.4-8.2) Albumin 3.9 g/dL (3.4-5.0) Lipase 145 U/L (73-393) Thyroid Stimulating Hormone (TSH) 2.742 uIU/mL (0.358-3.74) Serum Test, Qualitative Negative (NEG) Urine Collection Type Unknown Urine Color Yellow Urine Clarity Clear Urine pH 6.5 Urine Specific [place]arton 1.020 Urine Protein Negative mg/dL (NEG-TRACE) Urine Glucose (UA) Negative mg/dL (NEG) Urine Ketones (Stick) Negative mg/dL (NEG) Urine Blood Negative (NEG) Urine Nitrite Negative (NEG) Urine Bilirubin Negative (NEG) Urine Urobilinogen Dipstick 0.2 mg/dL (0.2 mg/dL) Urine Leukocyte Esterase Negative (NEG) Urine RBC 0 /HPF (0-2) Urine WBC 0 /HPF (0-4) Urine Squamous Epithelial Cells Few /LPF Urine Bacteria 0 /HPF (0-FEW) Urine Mucus Mod /LPF Laboratory Tests 05/22/17 17:45 Laboratory Tests 05/22/17 17:45 EKG EKG EKG timed 1727 05/22/[address] Donis demonstrates heart rate of 72 normal sinus rhythm with occasional PVCs there is normal OH interval 190 80 QRS width is 84 T-wave inversions and flattening in V1 and V2 otherwise no is similar T-wave changes concerning with acute coronary ischemia. [] Radiology/Procedures Radiology/Procedures [] AP film timed [address] Donis 05/22/2017 portal chest x-ray within normal inflated lungs no diaphragmatic flattening. There is no pleural effusion , no consolidation consistent with a pneumonia there is no pneumothorax. She has no evidence of substance air or mediastinal air. Course & Med Decision Making Course & Med Decision Making Pertinent Labs and Imaging studies reviewed. (See chart for details) ration presented with chest pain that began 60 minutes prior to arrival. Patient had chest pain like this in the past it is pleuritic in nature and really no different. It made her short of breath with pain across the chest with chest wall movement. Patient denies any fever cough chills or other symptoms. EKG was unremarkable, chest x-ray is unremarkable, troponin was negative, patient's CBC was normal, patient's CMP was unremarkable. Patient is symptom- free at this time resting comfortably chest wall pain was reproducible on exam.Differential diagnosis for chest pain: Pericarditis, myocarditis, endocarditis, pneumothorax, pneumonia, aortic dissection, esophageal spasm, esophagitis, peptic ulcer disease, acute coronary syndrome, mediastinitis, Boerhaave syndrome, musculoskeletal chest wall pain, costochondritis, intercostal strain, rib fracture, pulmonary contusion, pneumonitis, pleural effusion, pericardial effusion, pericardial tamponode, and pleurisy. Was considered upon arrival. History: Highly suspicious 2 points moderately suspicious 1. slightly suspicious 0 point EKG: ST segment depression 2. nonspecific repolarization disturbance 1. normal 0 point Age: Greater than 65 2 points, 65-45 1., less than 45 years old 0 points Risk factors:> 3 risk factors 2 points, 1-2 risk factors one point, no risk factors 0 point Troponin: > 2 times normal 2 points, 1-2 times normal 1., normal limits 0 point Total score: Score % pts MACE/n MACE Policy 0-3 32% 1.9% 0.05% Discharge 4-6 51% 413/3136 13% 1.3% Observation Risk management 7-10 17% 518/1045 50% 2.8% Observation Treatment, CAG [] Discordant low risk which allows me to discharge her home with PCP follow-up referral to cardiology for continued symptoms. Impression: Chest pain of unclear etiology, chest wall pain. Disposition: PCP follow-up with referral to cardiology for an outpatient stress test. I encouraged this patient to improve her diet reduce her smoking and exercise. Dragon Disclaimer Dragon Disclaimer This electronic medical record was generated, in whole or in part, using a voice recognition dictation system. Departure Departure Impression: Primary Impression: Chest wall pain Disposition: HOME, SELF-CARE Condition: IMPROVED Referrals: NO PCP (PCP) Patient Instructions: Chest Pain (Nonspecific), Chest Pain, Child Additional Instructions: These follow-up with your doctor for routine management of your chest wall pain. I provided anti-inflammatories for your chest wall pain. Please return for any new or increasing symptoms or feel any shortness of breath with fevers greater than 102.2 or feel any question concerns. Scripts Diazepam (VALIUM) 5 Mg Tablet 5 MG PO TID for MUSCLE SPASMS for 5 Days, #15 TAB Prov: YANG DONIS MD 05/22/17 Naproxen (NAPROSYN) 500 Mg Tablet 1 TAB PO BID, #14 TAB 1 Refill Prov: YANG DONIS MD 05/22/17 YANG DONIS MD May 22, 2017 18:12
[2017-05-22 18:18] LABS: NEG OBC SER NEG; POS OBC SER POS
[2017-05-22 18:23] LABS: ANION GAP 14 (6-14); BLOOD UREA NITROGEN 10 mg/dL (7-20); CALCIUM 9.4 mg/dL (8.5-10.1); CARBON DIOXIDE 22 mmol/L (21-32); CHLORIDE 103 mmol/L (98-107); CREATININE 0.5 mg/dL (0.6-1.0); GFR 130.1; GLUCOSE 92 mg/dL (70-99); POTASSIUM 4.4 mmol/L (3.5-5.1); SODIUM 139 mmol/L (136-145)
[2017-05-22 18:28] LABS: ALBUMIN 3.9 g/dL (3.4-5.0); ALK PHOS 99 U/L (46-116); ALT (SGPT) 24 U/L (14-59); AST (SGOT) 23 U/L (15-37); DIRECT BILIRUBIN < 0.1 mg/dL (0.0-0.2); MAGNESIUM 2.1 mg/dL (1.8-2.4); TOTAL BILIRUBIN 0.2 mg/dL (0.2-1.0); TOTAL PROTEIN 7.5 g/dL (6.4-8.2)
[2017-05-22 18:33] LABS: CKMB MASS 0.6 ng/mL (0.0-3.6)
--- NOTE | 2017-05-22 18:43 | EKG ---
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
[2017-05-22 19:30] LABS: BILIRUBIN,URINE NEGATIVE (NEG); GLUCOSE,URINE NEGATIVE (NEG); NITRITE,URINE NEGATIVE (NEG); PH,URINE 6.5; PROTEIN,URINE NEGATIVE (NEG-TRACE); UROBILINOGEN,URINE 0.2 mg/dL (0.2 mg/dL)
[2017-05-22 19:38] LABS: BACTERIA,URINE 0 /HPF (0-FEW); RBC,URINE 0 /HPF (0-2); SQUAMOUS EPITHELIAL CELL,UR FEW /LPF; WBC,URINE 0 /HPF (0-4)
[2017-05-22 20:25] VITALS: BP 122/73
[2017-05-22] MEDS ORDERED: NAPR500T PO (20:37)
[2017-05-22] MEDS ORDERED: DIAZ5TAB PO (20:37)
--- NOTE | 2017-05-23 08:20 | RAD ---
Indication left-sided chest pain. A single view of the chest was obtained and is compared to an examination 01/21/2017. The heart and pulmonary vessels appear normal. The lungs are clear. There is no pleural fluid or pneumothorax. There has not been a significant change overall when compared to the previous exam. IMPRESSION: No acute or focal process. No significant change
== END 2017-05-22 20:51 | disposition home or self-care (01) ==
LOC: ER 17:23
DX: R07.89 Other chest pain (principal); F41.9 Anxiety disorder, unspecified; J45.909 Unspecified asthma, uncomplicated; F17.210 Nicotine dependence, cigarettes, uncomplicated; M19.90 Unspecified osteoarthritis, unspecified site; F15.10 Other stimulant abuse, uncomplicated
CPT/HCPCS: 36415; 71010; 80048; 80076; 81001; 82553; 83690; 83735; 83880; 84443; 84484; 84703; 85027; 93005; 96361; 96374; 96375; 99285; J1170; J2060; J7030

== ENCOUNTER 2017-08-06 07:03 | Emergency (ER) | payer SELFPAY ==
[~2017-08-06] VITALS: Ht 162.6 cm; Wt 90.8 kg
[~2017-08-06 07:03] MED LIST changes: +DIAZ5TAB PO; +NAPR500T PO
[2017-08-06 07:14] VITALS: BP 132/80
[2017-08-06] MEDS ORDERED: methylPREDNISolone SOD SUCC PF 125 MG/2 ML VIAL. IM ONE (07:15)
[2017-08-06] MEDS ORDERED: IPRATRPIUM/ALBUTEROL 0.5/2.5MG 3 ML NEBU. NEB ONE (07:15)
--- NOTE | 2017-08-06 07:19 | PHYS DOC ---
Past Medical History Past Medical History: Anxiety, Arthritis, Cancer, Depression, Other Additional Past Medical Histor: Psoriasis,BRONCHIAL ASTHMA,BREAST CA Past Surgical History: , Other Additional Past Surgical Histo: BREAST CA SX-LUMP REMOVED, L ARM, R FOOT Alcohol Use: Rarely Drug Use: Methamphetamine, Other Adult General Chief Complaint Chief Complaint: SORE THROAT HPI HPI Patient is a 51 year old female with a history of bronchitis presents to the ED complaining of sore throat x 3 days. Associated symptoms include cough, ear pain and rhinorrhea. Denies chest pain, shortness of breath, dizziness, weakness , syncope, headache, fever, n/v, or abdominal pain. Review of Systems Review of Systems Constitutional: Denies fever or chills [] Eyes: Denies change in visual acuity, redness, or eye pain [] HENT: Denies nasal congestion. Complains of sore throat. [] Respiratory: Complains of cough. Denies shortness of breath [] Cardiovascular: No additional information not addressed in HPI [] GI: Denies abdominal pain, nausea, vomiting, bloody stools or diarrhea [] : Denies dysuria or hematuria [] Musculoskeletal: Denies back pain or joint pain [] Integument: Denies rash or skin lesions [] Neurologic: Denies headache, focal weakness or sensory changes [] Endocrine: Denies polyuria or polydipsia [] Current Medications Current Medications Current Medications Medications (Trade) Dose Ordered Sig/Zofia Start Time Stop Time Status Last Admin Dose Admin Albuterol/ Ipratropium (Duoneb) 3 ml 1X ONCE 08/06/17 07:15 08/06/17 07:16 DC 08/06/17 07:33 3 ML Methylprednisolone Sodium Succinate (SOLU-Medrol 125MG VIAL) 125 mg 1X ONCE 08/06/17 07:15 08/06/17 07:16 DC 08/06/17 07:26 125 MG Allergies Allergies Allergies Coded Allergies Type Severity Reaction Last Updated Verified No Known Drug Allergies 11/12/16 No Physical Exam Physical Exam Constitutional: Well developed, well nourished, no acute distress, non-toxic appearance. [] HENT: Normocephalic, atraumatic, bilateral external ears normal, MILD PHARYNGEAL ERYTHEMA. oropharynx moist, no oral exudates, nose normal. [] Eyes: PERRLA, EOMI, conjunctiva normal, no discharge. [] Neck: Normal range of motion, no tenderness, supple, no stridor. [] Cardiovascular:Heart rate regular rhythm, no murmur [] Lungs & Thorax: Bilateral breath sounds clear to auscultation [] Abdomen: Bowel sounds normal, soft, no tenderness, no masses, no pulsatile masses. [] Skin: Warm, dry, no erythema, no rash. [] Back: No tenderness, no CVA tenderness. [] Extremities: No tenderness, no cyanosis, no clubbing, ROM intact, no edema. [] Neurologic: Alert and oriented X 3, normal motor function, normal sensory function, no focal deficits noted. [] Psychologic: Affect normal, judgement normal, mood normal. [] Current Patient Data Vital Signs Vital Signs Date Time Temp Pulse Resp B/P (MAP) Pulse Ox O2 Delivery O2 Flow Rate FiO2 08/06/17 07:33 95 Room Air 08/06/17 07:14 97.6 79 20 97.6 EKG EKG [] Radiology/Procedures Radiology/Procedures [] Course & Med Decision Making Course & Med Decision Making Pertinent Labs and Imaging studies reviewed. (See chart for details) []Discussed imaging with patient. Patient's improved. Vitals stable, no acute distress. Will prescribe z-mary jo, prednisone, inhaler. Discussed follow-up with patient. Discussed reasons to return to the ED. Patient understands and agrees with plan. Dragon Disclaimer Dragon Disclaimer This electronic medical record was generated, in whole or in part, using a voice recognition dictation system. Departure Departure Impression: Primary Impression: Bronchitis Disposition: 01 HOME, SELF-CARE Condition: IMPROVED Referrals: NO PCP (PCP) ALISON MCKEON MD Patient Instructions: Bronchitis Scripts Ipratropium/Albuterol Sulfate (DUONEB 0.5-3(2.5) MG/3 ML) 3 Ml Ampul.neb 3 ML NEB QID for 5 Days, #20 EACH Prov: JORGE L MELTON 08/06/17 Albuterol Sulfate (PROAIR HFA INHALER) 8.5 Gm Hfa.aer.ad 1 PUFF INH PRN Q6HRS Y for SHORTNESS OF BREATH, #1 INHALER 0 Refills Prov: JORGE L MELTON 08/06/17 Prednisone (PREDNISONE) 20 Mg Tablet 2 TAB PO DAILY, #10 TAB Prov: JORGE L MELTON 08/06/17 Azithromycin (AZITHROMYCIN TABLET) 250 Mg Tablet 1 PKG PO UD, #6 TAB Prov: JORGE L MELTON 08/06/17 JORGE L MELTON Aug 06, 2017 07:19
--- NOTE | 2017-08-06 07:31 | RAD ---
Chest, 2 views, 08/06/2017: History: Cough Comparison is made to a study from 05/22/2017. The heart size and pulmonary vascularity are normal. No pulmonary infiltrates are seen. There is no evidence of pleural fluid. Minimal spurring is present in the spine. IMPRESSION: No acute cardiopulmonary abnormality is detected.
[2017-08-06] MEDS ORDERED: AZIT250T6 PO (07:34)
[2017-08-06] MEDS ORDERED: PROAIR HFA8.5 GM INH (07:34)
[2017-08-06] MEDS ORDERED: PRED20TA PO (07:34)
[2017-08-06] MEDS ORDERED: IPRA3AMP NEB (07:37)
== END 2017-08-06 07:45 | disposition home or self-care (01) ==
LOC: ER 07:03
DX: J40 Bronchitis, not specified as acute or chronic (principal); M19.90 Unspecified osteoarthritis, unspecified site; F15.10 Other stimulant abuse, uncomplicated; Z85.3 Personal history of malignant neoplasm of breast
CPT/HCPCS: 71020; 94250; 94640; 96372; 99284; J2930; J7620

== ENCOUNTER 2017-12-17 17:25 | Emergency (ER) | payer SELFPAY ==
[2017-12-17] MEDS: KETOROLAC 30 MG/ML INJ. IV ×2 (20:05)
[2017-12-17] MEDS: IV NORMAL SALINE 1000ML BAG 1,000 ML IV ×2 (20:05)
[2017-12-17 20:13] LABS: ADD MAN DIFF? NO
[2017-12-17 20:18] LABS: BASO % 1 % (0-3); EOS # 0.2 x10^3/uL (0.0-0.7); EOS % 2 % (0-3); HEMATOCRIT 40.3 % (36.0-47.0); HEMOGLOBIN 13.6 g/dL (12.0-15.5); LYMPH # 2.9 x10^3/uL (1.0-4.8); LYMPH % 36 % (24-48); MEAN CORPUSCULAR HEMOGLOBIN 32 pg (25-35); MEAN CORPUSCULAR HGB CONC 34 g/dL (31-37); MEAN CORPUSCULAR VOLUME 94 fL (79-100); MONO # 0.4 x10^3/uL (0.0-1.1); MONO % 5 % (0-9); NEUT # 4.6 x10^3uL (1.8-7.7); NEUT % 57 % (31-73); PLATELET COUNT 319 x10^3/uL (140-400); RED BLOOD COUNT 4.28 x10^6/uL (3.50-5.40); RED CELL DISTRIBUTION WIDTH 12.9 % (11.5-14.5); WHITE BLOOD COUNT 8.1 x10^3/uL (4.0-11.0)
[2017-12-17 20:28] LABS: ANION GAP 9 (6-14); BLOOD UREA NITROGEN 15 mg/dL (7-20); BUN/CREATININE RATIO 30 (6-20); CALCIUM 9.2 mg/dL (8.5-10.1); CARBON DIOXIDE 28 mmol/L (21-32); CHLORIDE 102 mmol/L (98-107); CREATININE 0.5 mg/dL (0.6-1.0); GFR 129.6; GLUCOSE 93 mg/dL (70-99); POTASSIUM 3.8 mmol/L (3.5-5.1); SODIUM 139 mmol/L (136-145)
[2017-12-17 20:36] LABS: ALBUMIN 3.7 g/dL (3.4-5.0); ALK PHOS 119 U/L (46-116); ALT (SGPT) 26 U/L (14-59); AST (SGOT) 19 U/L (15-37); LIPASE 123 U/L (73-393); TOTAL BILIRUBIN 0.2 mg/dL (0.2-1.0); TOTAL PROTEIN 7.3 g/dL (6.4-8.2)
== END 2017-12-17 21:05 | disposition home or self-care (01) ==
LOC: ER 17:25
DX: B34.9 Viral infection, unspecified (principal); F41.9 Anxiety disorder, unspecified; M19.90 Unspecified osteoarthritis, unspecified site; F32.9 Major depressive disorder, single episode, unspecified; L40.9 Psoriasis, unspecified; J44.9 Chronic obstructive pulmonary disease, unspecified; E66.9 Obesity, unspecified; Z68.34 Body mass index [BMI] 34.0-34.9, adult
CPT/HCPCS: 36415; 80053; 83690; 85025; 96361; 96374; 99284-25; J1885; J7030

== ENCOUNTER 2018-03-04 14:52 | Emergency (ER) | payer SELFPAY ==
[2018-03-04 16:49] LABS: ADD MAN DIFF? NO
[2018-03-04 16:52] LABS: BASO % 0 % (0-3); EOS # 0.1 x10^3/uL (0.0-0.7); EOS % 1 % (0-3); HEMATOCRIT 39.9 % (36.0-47.0); HEMOGLOBIN 13.8 g/dL (12.0-15.5); LYMPH # 2.5 x10^3/uL (1.0-4.8); LYMPH % 26 % (24-48); MEAN CORPUSCULAR HEMOGLOBIN 33 pg (25-35); MEAN CORPUSCULAR HGB CONC 35 g/dL (31-37); MEAN CORPUSCULAR VOLUME 95 fL (79-100); MONO # 0.4 x10^3/uL (0.0-1.1); MONO % 5 % (0-9); NEUT # 6.5 x10^3uL (1.8-7.7); NEUT % 68 % (31-73); PLATELET COUNT 321 x10^3/uL (140-400); RED BLOOD COUNT 4.21 x10^6/uL (3.50-5.40); RED CELL DISTRIBUTION WIDTH 12.8 % (11.5-14.5); WHITE BLOOD COUNT 9.7 x10^3/uL (4.0-11.0)
[2018-03-04] MEDS: IV NORMAL SALINE 1000ML BAG 1,000 ML IV (17:10)
[2018-03-04 17:14] LABS: ANION GAP 12 (6-14); BLOOD UREA NITROGEN 15 mg/dL (7-20); BUN/CREATININE RATIO 25 (6-20); CALCIUM 9.2 mg/dL (8.5-10.1); CARBON DIOXIDE 26 mmol/L (21-32); CHLORIDE 106 mmol/L (98-107); CREATININE 0.6 mg/dL (0.6-1.0); GLUCOSE 89 mg/dL (70-99); POTASSIUM 3.8 mmol/L (3.5-5.1); SODIUM 144 mmol/L (136-145)
[2018-03-04] MEDS: PROCHLORPERAZINE 10 MG/2 ML VIAL. IV (17:14)
[2018-03-04] MEDS: diphenhydrAMINE 50 MG/ML VIAL IVP (17:16)
[2018-03-04] MEDS: METOCLOPRAMIDE HCL 10 MG/2 ML VIAL. IV (17:18)
[2018-03-04 17:27] LABS: ALBUMIN 3.8 g/dL (3.4-5.0); ALK PHOS 133 U/L (46-116); ALT (SGPT) 24 U/L (14-59); AST (SGOT) 18 U/L (15-37); TOTAL BILIRUBIN 0.4 mg/dL (0.2-1.0); TOTAL PROTEIN 7.6 g/dL (6.4-8.2)
[2018-03-04 17:46] LABS: C-REACTIVE PROTEIN 3.2 mg/L (0-3.3)
[2018-03-04 17:55] LABS: SEDIMENTATION RATE 15 (0-25)
== END 2018-03-04 19:16 | disposition home or self-care (01) ==
LOC: ER 14:52
DX: R51 Headache (principal); F41.9 Anxiety disorder, unspecified; H53.8 Other visual disturbances; M19.90 Unspecified osteoarthritis, unspecified site; F32.9 Major depressive disorder, single episode, unspecified; J45.998 Other asthma
CPT/HCPCS: 36415; 70450; 80053; 85025; 85651; 86140; 96361; 96374; 96375; 99285-25; J0780; J1200; J2765; J7030

== ENCOUNTER 2018-09-02 09:11 | Emergency (ER) | payer SELFPAY ==
[~2018-09-02] VITALS: Ht 162.6 cm; Wt 89.4 kg
[~2018-09-02 09:11] MED LIST changes: +AZIT250T6 PO; +IPRA3AMP29 NEB; +NAPR-683 PO; -NAPR500T PO; +PRED20TA PO; +PROC10TA57 PO; +TRAM50TA PO
[2018-09-02] MEDS ORDERED: ASPIRIN CHEWABLE 81 MG TABLET. PO ONE (09:45)
--- NOTE | 2018-09-02 09:46 | EKG ---
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
[2018-09-02 09:56] LABS: BASO % 0 % (0-3); EOS # 0.2 x10^3/uL (0.0-0.7); EOS % 3 % (0-3); HEMATOCRIT 38.4 % (36.0-47.0); HEMOGLOBIN 13.6 g/dL (12.0-15.5); LYMPH # 2.7 x10^3/uL (1.0-4.8); LYMPH % 34 % (24-48); MEAN CORPUSCULAR HEMOGLOBIN 34 pg (25-35); MEAN CORPUSCULAR HGB CONC 35 g/dL (31-37); MEAN CORPUSCULAR VOLUME 95 fL (79-100); MONO # 0.4 x10^3/uL (0.0-1.1); MONO % 5 % (0-9); NEUT # 4.6 x10^3uL (1.8-7.7); NEUT % 58 % (31-73); PLATELET COUNT 275 x10^3/uL (140-400); RED BLOOD COUNT 4.03 x10^6/uL (3.50-5.40); WHITE BLOOD COUNT 7.9 x10^3/uL (4.0-11.0)
[2018-09-02 10:00] LABS: CALCIUM 9.3 mg/dL (8.5-10.1); CREATININE 0.6 mg/dL (0.6-1.0)
[2018-09-02 10:05] LABS: ALBUMIN 3.7 g/dL (3.4-5.0); ALBUMIN/GLOBULIN RATIO 1.1 (1.0-1.7); TOTAL BILIRUBIN 0.4 mg/dL (0.2-1.0)
[2018-09-02 10:07] LABS: POTASSIUM 3.7 mmol/L (3.5-5.1)
--- NOTE | 2018-09-02 10:08 | RAD ---
Exam: AP portable chest History: Left chest pain for 2 days. Chest pressure for one week. Comparison: August 06, 2017. Findings: The heart and mediastinal structures are within normal limits for size. Lungs are without infiltrate. No pleural effusion or pneumothorax is identified. Impression: 1. No acute cardiopulmonary process. Electronically signed by: Jose Ramsay MD (09/02/2018 10:05 AM) [facility]
[2018-09-02 10:13] LABS: PROTHROMBIN TIME PATIENT 11.4 SEC (11.7-14.0)
[2018-09-02 10:19] LABS: D-DIMER 0.38 ug/mlFEU (0.00-0.50)
[2018-09-02 10:30] VITALS: BP 128/79
--- NOTE | 2018-09-02 12:22 | PHYS DOC ---
Past Medical History Past Medical History: High Cholesterol Additional Past Medical Histor: Psoriasis,BRONCHIAL ASTHMA,BREAST CA Past Surgical History: , Other Additional Past Surgical Histo: BREAST CA SX-LUMP REMOVED, L ARM, R FOOT Alcohol Use: None Drug Use: None Adult General Chief Complaint Chief Complaint: CHEST PAIN HPI HPI Patient is a 52 year old female who is presenting with chest discomfort cough right arm pain , left leg numbness. She has had chest pain under her left rib worse with coughing for about a week now nonproductive cough she get up her prescription for azithromycin by her primary care doctor. She also had some pain in her right arm for the same time period and then just upon arrival to the emergency room noticed some numbness to the left thigh area. No shortness of breath no fever the pain is not exertional it is localized under the left breast she says she just "doesn't feel right" Review of Systems Review of Systems Constitutional: Denies fever or chills [] Eyes: Denies change in visual acuity, redness, or eye pain [] HENT: Denies nasal congestion or sore throat [] GI: Denies abdominal pain, nausea, vomiting, bloody stools or diarrhea [] : Denies dysuria or hematuria [] Musculoskeletal: Neurologic: Denies headache, All other systems were reviewed and found to be within normal limits, except as documented in this note. Current Medications Current Medications Current Medications Medications (Trade) Dose Ordered Sig/Zofia Start Time Stop Time Status Last Admin Dose Admin Aspirin (Children'S Aspirin) 324 mg 1X ONCE 09/02/18 09:45 09/02/18 09:46 DC 09/02/18 09:45 324 MG Allergies Allergies Allergies Coded Allergies Type Severity Reaction Last Updated Verified No Known Drug Allergies 11/12/16 No Physical Exam Physical Exam Constitutional: Well developed, well nourished, no acute distress, non-toxic appearance. [] HENT: Normocephalic, atraumatic, bilateral external ears normal, oropharynx moist, no oral exudates, nose normal. [] Eyes: PERRLA, EOMI, conjunctiva normal, no discharge. [] Neck: Normal range of motion, no tenderness, supple, no stridor. [] Cardiovascular:Heart rate regular rhythm, no murmur [] Lungs & Thorax: Bilateral breath sounds clear to auscultation [] Abdomen: Bowel sounds normal, soft, no tenderness, no masses, no pulsatile masses. [] Skin: Warm, dry, no erythema, no rash. [] Back: No tenderness, no CVA tenderness. [] Extremities: No tenderness, no cyanosis, no clubbing, ROM intact, no edema. [] Neurologic: Alert and oriented X 3, normal motor function, normal sensory function, no focal deficits noted. [] Psychologic: Affect normal, judgement normal, mood normal. [] Current Patient Data Vital Signs Vital Signs Date Time Temp Pulse Resp B/P (MAP) Pulse Ox O2 Delivery O2 Flow Rate FiO2 09/02/18 10:30 64 17 128/79 (95) 99 Room Air 09/02/18 09:37 97.8 97.8 Lab Values Laboratory Tests Test 09/02/18 09:33 White Blood Count 7.9 x10^3/uL (4.0-11.0) Red Blood Count 4.03 x10^6/uL (3.50-5.40) Hemoglobin 13.6 g/dL (12.0-15.5) Hematocrit 38.4 % (36.0-47.0) Mean Corpuscular Volume 95 fL (79-100) Mean Corpuscular Hemoglobin 34 pg (25-35) Mean Corpuscular Hemoglobin Concent 35 g/dL (31-37) Red Cell Distribution Width 13.0 % (11.5-14.5) Platelet Count 275 x10^3/uL (140-400) Neutrophils (%) (Auto) 58 % (31-73) Lymphocytes (%) (Auto) 34 % (24-48) Monocytes (%) (Auto) 5 % (0-9) Eosinophils (%) (Auto) 3 % (0-3) Basophils (%) (Auto) 0 % (0-3) Neutrophils # (Auto) 4.6 x10^3uL (1.8-7.7) Lymphocytes # (Auto) 2.7 x10^3/uL (1.0-4.8) Monocytes # (Auto) 0.4 x10^3/uL (0.0-1.1) Eosinophils # (Auto) 0.2 x10^3/uL (0.0-0.7) Basophils # (Auto) 0.0 x10^3/uL (0.0-0.2) Prothrombin Time 11.4 SEC (11.7-14.0) L Prothrombin Time INR 0.9 (0.8-1.1) D-Dimer (Gladys) 0.38 ug/mlFEU (0.00-0.50) Sodium Level 144 mmol/L (136-145) Potassium Level 3.7 mmol/L (3.5-5.1) Chloride Level 107 mmol/L (98-107) Carbon Dioxide Level 28 mmol/L (21-32) Anion Gap 9 (6-14) Blood Urea Nitrogen 9 mg/dL (7-20) Creatinine 0.6 mg/dL (0.6-1.0) Estimated GFR (Cockcroft-Gault) 105.0 BUN/Creatinine Ratio 15 (6-20) Glucose Level 91 mg/dL (70-99) Calcium Level 9.3 mg/dL (8.5-10.1) Total Bilirubin 0.4 mg/dL (0.2-1.0) Aspartate Amino Transferase (AST) 19 U/L (15-37) Alanine Aminotransferase (ALT) 29 U/L (14-59) Alkaline Phosphatase 105 U/L (46-116) Troponin I Quantitative < 0.017 ng/mL (0.000-0.055) Total Protein 7.0 g/dL (6.4-8.2) Albumin 3.7 g/dL (3.4-5.0) Albumin/Globulin Ratio 1.1 (1.0-1.7) Lipase 114 U/L (73-393) Laboratory Tests 09/02/18 09:33 Laboratory Tests 09/02/18 09:33 EKG EKG [] Interpretation Time: EKG shows a normal sinus rhythm with a rate of 68 there are no obvious acute ischemic changes noted nonspecific flattening in aVL this was interpreted by me at the time of the clinical encounter Radiology/Procedures Radiology/Procedures [] Impressions: Chest x-ray negative Course & Med Decision Making Course & Med Decision Making Pertinent Labs and Imaging studies reviewed. (See chart for details) 52-year-old female no significant past medical history was presenting with some chest pain associated with recent coughing. Very atypical in nature it is nonradiating it is nonexertional really troponin and EKG are negative after a week of pain she has been coughing she also has diffuse pain in her extremities mostly in her right and right upper and left lower. At this point in time the ER workup is negative the vitals are normal this does not sound like a PE dissection or NV think she is stable for outpatient management. He is agreeable to plan she is aware of the findings follow-up as needed if not improving. Dragon Disclaimer Dragon Disclaimer This electronic medical record was generated, in whole or in part, using a voice recognition dictation system. Departure Departure Impression: Primary Impression: Chest wall pain Disposition: HOME, SELF-CARE Condition: STABLE Referrals: UNKNOWN PCP NAME (PCP) Patient Instructions: Chest Pain (Nonspecific), [id number] GABY ROBERTS MD Sep 02, 2018 12:22
--- NOTE | 2018-09-02 14:48 | EKG ---
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
== END 2018-09-02 11:40 | disposition home or self-care (01) ==
LOC: ER 09:11
DX: R07.89 Other chest pain (principal); R05 Cough; M79.601 Pain in right arm; R20.0 Anesthesia of skin; E78.00 Pure hypercholesterolemia, unspecified; Z98.890 Other specified postprocedural states
CPT/HCPCS: 36415; 71045; 80053; 83690; 84484; 85025; 85379; 85610; 93005; 99285-25

== ENCOUNTER 2018-12-31 16:05 | Emergency (ER) | payer SELFPAY ==
[~2018-12-31] VITALS: Ht 162.6 cm; Wt 89.4 kg
[~2018-12-31 16:05] MED LIST changes: +ALBU2.5V8 INH; -PROAIR HFA8.5 GM INH
--- NOTE | 2018-12-31 16:22 | PHYS DOC ---
Past Medical History Past Medical History: High Cholesterol Additional Past Medical Histor: Psoriasis,BRONCHIAL ASTHMA,BREAST CA Past Surgical History: , Other Additional Past Surgical Histo: BREAST CA SX-LUMP REMOVED, L ARM, R FOOT Alcohol Use: None Drug Use: None Adult General Chief Complaint Chief Complaint: CHEST PAIN HPI HPI Patient is a 53 year old female presented to ER today for evaluation of substernal chest pain the left side, is sharp, stabbing in nature that radiated to her back that been going on for 3 days. The pain worse when she takes a deep breath or cough or palpation. Patient is a smoker, no recent travel, no recent operation. Patient denies any previous history of blood clot disorder or history of coronary artery disease. Review of Systems Review of Systems Constitutional: Denies fever or chills [] Eyes: Denies change in visual acuity, redness, or eye pain [] HENT: Denies nasal congestion or sore throat [] Respiratory: Positive for nonproductive cough and shortness of breath [] Cardiovascular: positive for sharp chest pain GI: Denies abdominal pain, nausea, vomiting, bloody stools or diarrhea [] : Denies dysuria or hematuria [] Musculoskeletal: Denies back pain or joint pain [] Integument: Denies rash or skin lesions [] Neurologic: Denies headache, focal weakness or sensory changes [] Endocrine: Denies polyuria or polydipsia [] All other systems were reviewed and found to be within normal limits, except as documented in this note. Current Medications Current Medications Current Medications Medications (Trade) Dose Ordered Sig/Zofia Start Time Stop Time Status Last Admin Dose Admin Info (CONTRAST GIVEN -- Rx MONITORING) 1 each PRN DAILY PRN 12/31/18 18:00 01/02/19 17:59 Iohexol (Omnipaque 350 Mg/ml) 100 ml 1X ONCE 12/31/18 17:45 12/31/18 17:46 DC 12/31/18 17:54 100 ML Ketorolac Tromethamine (Toradol 30mg Vial) 30 mg 1X ONCE 12/31/18 17:15 12/31/18 17:16 DC 12/31/18 17:19 30 MG Allergies Allergies Allergies Coded Allergies Type Severity Reaction Last Updated Verified No Known Drug Allergies 11/12/16 No Physical Exam Physical Exam Constitutional: Well developed, well nourished, no acute distress, non-toxic appearance. [] HENT: Normocephalic, atraumatic, bilateral external ears normal, oropharynx moist, no oral exudates, nose normal. [] Eyes: PERRLA, EOMI, conjunctiva normal, no discharge. [] Neck: Normal range of motion, no tenderness, supple, no stridor. [] Cardiovascular:Heart rate regular rhythm, no murmur [] Lungs & Thorax: Bilateral breath sounds clear to auscultation. Chest pain is reproducible to palpation. Abdomen: Bowel sounds normal, soft, no tenderness, no masses, no pulsatile masses. [] Skin: Warm, dry, no erythema, no rash. [] Back: No tenderness, no CVA tenderness. [] Extremities: No tenderness, no cyanosis, no clubbing, ROM intact, no edema. [] Neurologic: Alert and oriented X 3, normal motor function, normal sensory function, no focal deficits noted. [] Psychologic: Affect normal, judgement normal, mood normal. [] Current Patient Data Vital Signs Vital Signs Date Time Temp Pulse Resp B/P (MAP) Pulse Ox O2 Delivery O2 Flow Rate FiO2 12/31/18 16:05 97.5 73 17 129/78 (95) 97 Room Air 97.5 Lab Values Laboratory Tests Test 12/31/18 16:51 12/31/18 17:30 White Blood Count 8.0 x10^3/uL (4.0-11.0) Red Blood Count 4.25 x10^6/uL (3.50-5.40) Hemoglobin 13.7 g/dL (12.0-15.5) Hematocrit 40.6 % (36.0-47.0) Mean Corpuscular Volume 96 fL (79-100) Mean Corpuscular Hemoglobin 32 pg (25-35) Mean Corpuscular Hemoglobin Concent 34 g/dL (31-37) Red Cell Distribution Width 12.7 % (11.5-14.5) Platelet Count 305 x10^3/uL (140-400) Neutrophils (%) (Auto) 53 % (31-73) Lymphocytes (%) (Auto) 38 % (24-48) Monocytes (%) (Auto) 6 % (0-9) Eosinophils (%) (Auto) 3 % (0-3) Basophils (%) (Auto) 1 % (0-3) Neutrophils # (Auto) 4.3 x10^3uL (1.8-7.7) Lymphocytes # (Auto) 3.0 x10^3/uL (1.0-4.8) Monocytes # (Auto) 0.5 x10^3/uL (0.0-1.1) Eosinophils # (Auto) 0.2 x10^3/uL (0.0-0.7) Basophils # (Auto) 0.1 x10^3/uL (0.0-0.2) Prothrombin Time 12.3 SEC (11.7-14.0) Prothrombin Time INR 0.9 (0.8-1.1) PTT 19 SEC (24-38) L D-Dimer (Gladys) 0.33 ug/mlFEU (0.00-0.50) Sodium Level 141 mmol/L (136-145) Potassium Level 4.0 mmol/L (3.5-5.1) Chloride Level 105 mmol/L (98-107) Carbon Dioxide Level 28 mmol/L (21-32) Anion Gap 8 (6-14) Blood Urea Nitrogen 15 mg/dL (7-20) Creatinine 0.5 mg/dL (0.6-1.0) L Estimated GFR (Cockcroft-Gault) 129.1 BUN/Creatinine Ratio 30 (6-20) H Glucose Level 99 mg/dL (70-99) Calcium Level 9.3 mg/dL (8.5-10.1) Magnesium Level 1.9 mg/dL (1.8-2.4) Total Bilirubin 0.2 mg/dL (0.2-1.0) Aspartate Amino Transferase (AST) 19 U/L (15-37) Alanine Aminotransferase (ALT) 31 U/L (14-59) Alkaline Phosphatase 119 U/L (46-116) H Creatine Kinase 78 U/L (26-192) Creatine Kinase MB (Mass) 0.8 ng/mL (0.0-3.6) Creatine Kinase MB Relative Index 1.0 % (0-4) Troponin I Quantitative < 0.017 ng/mL (0.000-0.055) LB-Ynf-T-Type Natriuretic Peptide 56 pg/mL (0-124) Total Protein 7.3 g/dL (6.4-8.2) Albumin 3.6 g/dL (3.4-5.0) Albumin/Globulin Ratio 1.0 (1.0-1.7) Lipase 126 U/L (73-393) Urine Collection Type Void Urine Color Yellow Urine Clarity Clear Urine pH 5.5 Urine Specific Mazon 1.025 Urine Protein Negative mg/dL (NEG-TRACE) Urine Glucose (UA) Negative mg/dL (NEG) Urine Ketones (Stick) Negative mg/dL (NEG) Urine Blood Small (NEG) Urine Nitrite Positive (NEG) Urine Bilirubin Negative (NEG) Urine Urobilinogen Dipstick 0.2 mg/dL (0.2 mg/dL) Urine Leukocyte Esterase Negative (NEG) Urine RBC 0 /HPF (0-2) Urine WBC 0 /HPF (0-4) Urine Bacteria Many /HPF (0-FEW) Laboratory Tests 12/31/18 16:51 Laboratory Tests 12/31/18 16:51 EKG EKG EKG WAS READ BY THIS PHYSICIAN AT 1618, NO STEMI, NSR, RATE OF 81 BPM. ] Radiology/Procedures Radiology/Procedures [][facility] [address] [place] [address] IMAGING REPORT Signed PATIENT: LEDY CASSIDY ACCOUNT: [id number] : 1965 LOCATION: ER AGE: 53 SEX: F EXAM STATUS: REG ER ORD. PHYSICIAN: MIGUEL ANGEL BURNETT DO REASON: SHARP CHEST PAIN, SMOKER, SOA, EVALUATE FOR PE PROCEDURE: CT ANGIOGRAPHY CHEST PQRS Compliance statement: One or more of the following individualized dose reduction techniques were utilized for this examination: 1. Automated exposure control. 2. Adjustment of the mA and/or kV according to patient size. 3. Use of iterative reconstruction technique. Indication:Chest pain, SOA, NO PRIORS, [id number] 100ML TECHNIQUE: CT angiogram of the chest with IV contrast with multiplanar MIP reformats. COMPARISON:None FINDINGS: Diagnostic quality PE study. There are no central, segmental or subsegmental filling defects in the pulmonary arteries. Heart is normal in size. No pericardial or pleural effusion. No enlarged axillary, mediastinal or hilar adenopathy. Central airways are patent. Mild diffuse emphysema. Mild right apical pleural scarring. Lungs are clear. Visualized sections through the liver, spleen, pancreas, adrenals within normal limits. 2.8 x 1.9 cm exophytic well-circumscribed high attenuating lesion in the visualized left kidney. No suspicious bony lesion. IMPRESSION: 1. No PE. 2. No pneumonia. 3. Left renal lesion most likely minimally comminuted cysts. Nonemergent ultrasound of the left kidney can be obtained for confirmation. Electronically signed by: Johan Cramer DO (12/31/2018 6:06 PM) [facility] DICTATED and SIGNED BY: JOHAN CRAMER DO DATE: 12/31/181800 Course & Med Decision Making Course & Med Decision Making Pertinent Labs and Imaging studies reviewed. (See chart for details) [] Dragon Disclaimer Dragon Disclaimer This electronic medical record was generated, in whole or in part, using a voice recognition dictation system. Departure Departure Impression: Primary Impression: Chest wall pain Additional Impression: Pleurisy Disposition: 01 HOME, SELF-CARE Condition: IMPROVED Referrals: UNKNOWN PCP NAME (PCP) FOLLOW UP WITH YOUR DOCTOR FOR FURTHER EVALUATION IN OUTPATIENT SETTING THIS WEEK. TAKE IBUPROFEN OR NAPROXEN FOR PAIN Patient Instructions: Pleurisy Scripts Naproxen (NAPROXEN) 500 Mg Tablet.dr 1 TAB PO BID PRN for PAIN, #20 TAB 2 Refills Prov: MIGUEL ANGEL BURNETT DO 12/31/18 Prednisone (PREDNISONE ) 10 Mg Tablet 20 MG PO DAILY for 7 Days, #14 TAB 0 Refills Prov: MIGUEL ANGEL BURNETT DO 12/31/18 Problem Qualifiers MIGUEL ANGEL BURNETT DO Dec 31, 2018 16:21
[2018-12-31 17:00] LABS: BASO # 0.1 x10^3/uL (0.0-0.2); BASO % 1 % (0-3); EOS # 0.2 x10^3/uL (0.0-0.7); EOS % 3 % (0-3); HEMATOCRIT 40.6 % (36.0-47.0); HEMOGLOBIN 13.7 g/dL (12.0-15.5); LYMPH % 38 % (24-48); MEAN CORPUSCULAR HEMOGLOBIN 32 pg (25-35); MEAN CORPUSCULAR HGB CONC 34 g/dL (31-37); MEAN CORPUSCULAR VOLUME 96 fL (79-100); MONO # 0.5 x10^3/uL (0.0-1.1); MONO % 6 % (0-9); NEUT # 4.3 x10^3uL (1.8-7.7); NEUT % 53 % (31-73); PLATELET COUNT 305 x10^3/uL (140-400); RED BLOOD COUNT 4.25 x10^6/uL (3.50-5.40); RED CELL DISTRIBUTION WIDTH 12.7 % (11.5-14.5)
[2018-12-31 17:10] LABS: PROTHROMBIN TIME PATIENT 12.3 SEC (11.7-14.0)
[2018-12-31 17:14] LABS: D-DIMER 0.33 ug/mlFEU (0.00-0.50)
[2018-12-31] MEDS ORDERED: KETOROLAC 30 MG/ML VIAL. IV ONE (17:15)
[2018-12-31 17:18] LABS: CALCIUM 9.3 mg/dL (8.5-10.1); CREATININE 0.5 mg/dL (0.6-1.0); GFR 129.1
[2018-12-31 17:25] LABS: ALBUMIN 3.6 g/dL (3.4-5.0); MAGNESIUM 1.9 mg/dL (1.8-2.4); TOTAL BILIRUBIN 0.2 mg/dL (0.2-1.0); TOTAL PROTEIN 7.3 g/dL (6.4-8.2)
[2018-12-31 17:30] VITALS: BP 120/75
[2018-12-31] MEDS ORDERED: IOHEXOL 350 MG/ML 100 ML VIAL. IV ONE (17:45)
[2018-12-31 17:56] LABS: BILIRUBIN,URINE NEGATIVE (NEG); CLARITY,URINE CLEAR; COLOR,URINE YELLOW; NITRITE,URINE POSITIVE (NEG); PH,URINE 5.5; PROTEIN,URINE NEGATIVE (NEG-TRACE); UROBILINOGEN,URINE 0.2 mg/dL (0.2 mg/dL)
[2018-12-31] MEDS ORDERED: CONTRAST GIVEN. MC PRN (18:00)
--- NOTE | 2018-12-31 18:09 | RAD ---
PQRS Compliance statement: One or more of the following individualized dose reduction techniques were utilized for this examination: 1. Automated exposure control. 2. Adjustment of the mA and/or kV according to patient size. 3. Use of iterative reconstruction technique. Indication:Chest pain, SOA, NO PRIORS, [id number] 100ML TECHNIQUE: CT angiogram of the chest with IV contrast with multiplanar MIP reformats. COMPARISON:None FINDINGS: Diagnostic quality PE study. There are no central, segmental or subsegmental filling defects in the pulmonary arteries. Heart is normal in size. No pericardial or pleural effusion. No enlarged axillary, mediastinal or hilar adenopathy. Central airways are patent. Mild diffuse emphysema. Mild right apical pleural scarring. Lungs are clear. Visualized sections through the liver, spleen, pancreas, adrenals within normal limits. 2.8 x 1.9 cm exophytic well-circumscribed high attenuating lesion in the visualized left kidney. No suspicious bony lesion. IMPRESSION: 1. No PE. 2. No pneumonia. 3. Left renal lesion most likely minimally comminuted cysts. Nonemergent ultrasound of the left kidney can be obtained for confirmation. Electronically signed by: Johan Quick DO (12/31/2018 6:06 PM) [facility]
[2018-12-31 18:15] LABS: BACTERIA,URINE MANY /HPF (0-FEW); RBC,URINE 0 /HPF (0-2); WBC,URINE 0 /HPF (0-4)
[2018-12-31] MEDS ORDERED: PRED-220 PO (18:35)
[2018-12-31] MEDS ORDERED: NAPR500T8 PO (18:35)
--- NOTE | 2018-12-31 19:38 | RAD ---
PROCEDURE: PORTABLE CHEST 1V CLINICAL INDICATION: CHEST AND BACK PAIN COMPARISON: 09/02/2018 FINDINGS: No pneumothorax identified. Cardiac and mediastinal contours unremarkable. No pulmonary consolidation or acute airspace disease. No acute osseous abnormalities identified. IMPRESSION: No pulmonary consolidation or acute airspace disease. Electronically signed by: Johan Quick DO (12/31/2018 7:35 PM) [facility]
--- NOTE | 2019-01-01 18:48 | EKG ---
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
[2019-03-28] MEDS ORDERED: VARE1TAB21 PO (23:24)
[2019-03-28] MEDS ORDERED: TRAZ-118 PO (23:30)
[2019-03-31] MEDS ORDERED: Pantoprazole PO (09:27)
== END 2018-12-31 18:51 | disposition home or self-care (01) ==
LOC: ER 16:05
DX: R07.2 Precordial pain (principal); R09.1 Pleurisy; E78.00 Pure hypercholesterolemia, unspecified; Z98.890 Other specified postprocedural states
CPT/HCPCS: 36415; 71045; 71275; 80053; 81001; 82550; 82553; 83690; 83735; 83880; 84484; 85025; 85379; 85610; 85730; 87086; 93005; 96374; 99284; J1885; Q9967; 87186

== ENCOUNTER 2019-10-25 09:57 | Emergency (ER) | payer OTHER ==
[~2019-10-25] VITALS: Ht 162.6 cm; Wt 95.3 kg
[~2019-10-25 09:57] MED LIST changes: +NAPR500T8 PO; +Pantoprazole PO; +TRAZ-118 PO; +VARE1TAB21 PO
[2019-10-25] MEDS ORDERED: IPRATRPIUM/ALBUTEROL 0.5/2.5MG 3 ML NEBU. NEB ONE (11:00)
[2019-10-25] MEDS ORDERED: KETOROLAC 30 MG/ML VIAL. IVP ONE (11:00)
[2019-10-25] MEDS ORDERED: methylPREDNISolone SOD SUCC PF 125 MG/2 ML VIAL. IV ONE (11:00)
[2019-10-25] MEDS ORDERED: IV NORMAL SALINE 1000ML BAG 1,000 ML IV SCH (11:00)
[2019-10-25 11:04] LABS: BASO % 1 % (0-3); EOS % 0 % (0-3); HEMATOCRIT 40.8 % (36.0-47.0); HEMOGLOBIN 14.2 g/dL (12.0-15.5); LYMPH # 1.4 x10^3/uL (1.0-4.8); LYMPH % 19 % (24-48); MEAN CORPUSCULAR HEMOGLOBIN 33 pg (25-35); MEAN CORPUSCULAR HGB CONC 35 g/dL (31-37); MEAN CORPUSCULAR VOLUME 95 fL (79-100); MONO # 0.5 x10^3/uL (0.0-1.1); MONO % 7 % (0-9); NEUT # 5.3 x10^3/uL (1.8-7.7); NEUT % 74 % (31-73); PLATELET COUNT 261 x10^3/uL (140-400); RED BLOOD COUNT 4.32 x10^6/uL (3.50-5.40); RED CELL DISTRIBUTION WIDTH 12.7 % (11.5-14.5); WHITE BLOOD COUNT 7.3 x10^3/uL (4.0-11.0)
[2019-10-25 11:17] LABS: CALCIUM 9.2 mg/dL (8.5-10.1); CREATININE 1.3 mg/dL (0.6-1.0); GFR 42.7; POTASSIUM 3.8 mmol/L (3.5-5.1)
[2019-10-25 11:23] LABS: INFLUENZA A PATIENT POSITIVE (NEGATIVE); INFLUENZA B PATIENT NEGATIVE (NEGATIVE)
[2019-10-25 11:23] LABS: ALBUMIN 4.3 g/dL (3.4-5.0); ALBUMIN/GLOBULIN RATIO 1.1 (1.0-1.7); TOTAL BILIRUBIN 0.3 mg/dL (0.2-1.0); TOTAL PROTEIN 8.3 g/dL (6.4-8.2)
--- NOTE | 2019-10-25 11:42 | RAD ---
Chest, PA and Lateral: Technique: PA and lateral views of the chest were obtained. History: Cough, chest pain. Comparison: 12/31/2018. Findings: The heart and pulmonary vasculature appear within normal limits. The lungs are clear. The pleural margins are clear. Impression: No acute chest process is seen. Electronically signed by: Rosalino Farris MD (10/25/2019 11:39 AM) [facility]
[2019-10-25] MEDS ORDERED: OSELTAMIVIR 75 MG CAPSULE PO STA (11:55)
[2019-10-25] MEDS ORDERED: fentaNYL PF VIAL 100 MCG/2 ML VIAL IVP ONE (12:00)
[2019-10-25] MEDS ORDERED: ONDANSETRON PF 4 MG/2 ML VIAL. IV ONE (12:00)
[2019-10-25] MEDS ORDERED: ALBU2.5V8 IH (12:26)
[2019-10-25] MEDS ORDERED: HYDR-3164 PO (12:26)
[2019-10-25] MEDS ORDERED: BENZ100C PO (12:26)
[2019-10-25] MEDS ORDERED: OSEL75CA PO (12:26)
--- NOTE | 2019-10-25 12:26 | PHYS DOC ---
Past Medical History Past Medical History: Asthma, Bronchitis, Cancer, High Cholesterol, Other Additional Past Medical Histor: Psoriasis, BREAST CA Past Surgical History: , Other Additional Past Surgical Histo: BREAST CA SX-LUMP REMOVED,L ARM,R FOOT Additional Information: 1 PPD Alcohol Use: Occasionally Drug Use: None Adult General Chief Complaint Chief Complaint: DIZZY/LIGHT HEADED HPI HPI Patient is a 54 year old evaluation with history of dyslipidemia, bronchitis, breast cancer and currently smoking who presents with complaining of cough and pain in her rib cage and dizziness. Patient complaining of nonproductive cough that started less than 48 hours ago associated with shortness of breath, bilateral rib cage pain, dizziness, sore throat, myalgia. Patient denies fever and chills, sick contact, vomiting and diarrhea, urinary symptom. She was afebrile at arrival to ER. Review of Systems Review of Systems Constitutional: Denies fever or chills [] Eyes: Denies change in visual acuity, redness, or eye pain [] HENT: Reports nasal congestion or sore throat Respiratory: Reports cough and shortness of breath Cardiovascular: No additional information not addressed in HPI [] GI: Denies abdominal pain, nausea, vomiting, bloody stools or diarrhea [] : Denies dysuria or hematuria [] Musculoskeletal: Denies back pain or joint pain [] Integument: Denies rash or skin lesions [] Neurologic: Denies headache, focal weakness or sensory changes [] Endocrine: Denies polyuria or polydipsia [] All other systems were reviewed and found to be within normal limits, except as documented in this note. Current Medications Current Medications Current Medications Medications (Trade) Dose Ordered Sig/Zofia Start Time Stop Time Status Last Admin Dose Admin Albuterol/ Ipratropium (Duoneb) 3 ml 1X ONCE 10/25/19 11:00 10/25/19 11:01 DC 10/25/19 10:58 3 ML Fentanyl Citrate (Fentanyl 2ml Vial) 50 mcg 1X ONCE 10/25/19 12:00 10/25/19 12:01 DC Ketorolac Tromethamine (Toradol 30mg Vial) 30 mg 1X ONCE 10/25/19 11:00 10/25/19 11:01 DC 10/25/19 10:57 30 MG Methylprednisolone Sodium Succinate (SOLU-Medrol 125MG VIAL) 125 mg 1X ONCE 10/25/19 11:00 10/25/19 11:01 DC 10/25/19 10:56 125 MG Ondansetron HCl (Zofran) 4 mg 1X ONCE 10/25/19 12:00 10/25/19 12:01 DC Oseltamivir Phosphate (Tamiflu) 75 mg 1X STAT 10/25/19 11:55 10/25/19 12:02 DC Sodium Chloride 1,000 ml @ 1,000 mls/hr Q1H 10/25/19 11:00 10/25/19 11:59 DC 10/25/19 10:56 1,000 MLS/HR Allergies Allergies Allergies Coded Allergies Type Severity Reaction Last Updated Verified No Known Drug Allergies 03/30/19 No Physical Exam Physical Exam Constitutional: Well developed, well nourished, mild distress, non-toxic appearance. [] HENT: Normocephalic, atraumatic, bilateral external ears normal, oropharynx moist, showed erythema, no oral exudates, nose normal. [] Eyes: PERRLA, EOMI, conjunctiva normal, no discharge. [] Neck: Normal range of motion, no tenderness, supple, no stridor. [] Cardiovascular: Tachycardia, no murmur [] Lungs & Thorax: No respiratory distress, mild bilateral rhonchi. Abdomen: Bowel sounds normal, soft, no tenderness, no masses, no pulsatile masses. [] Skin: Warm, dry, no erythema, no rash. [] Back: No tenderness, no CVA tenderness. [] Extremities: No tenderness, no cyanosis, no clubbing, ROM intact, no edema. [] Neurologic: Alert and oriented X 3, normal motor function, normal sensory function, no focal deficits noted. [] Psychologic: Affect normal, judgement normal, mood normal. [] Current Patient Data Vital Signs Vital Signs Date Time Temp Pulse Resp B/P (MAP) Pulse Ox O2 Delivery O2 Flow Rate FiO2 10/25/19 10:58 93 Nasal Cannula 2.0 10/25/19 10:06 98.2 102 16 115/70 (85) 98.2 Lab Values Laboratory Tests Test 10/25/19 10:23 10/25/19 10:50 White Blood Count 7.3 x10^3/uL (4.0-11.0) Red Blood Count 4.32 x10^6/uL (3.50-5.40) Hemoglobin 14.2 g/dL (12.0-15.5) Hematocrit 40.8 % (36.0-47.0) Mean Corpuscular Volume 95 fL (79-100) Mean Corpuscular Hemoglobin 33 pg (25-35) Mean Corpuscular Hemoglobin Concent 35 g/dL (31-37) Red Cell Distribution Width 12.7 % (11.5-14.5) Platelet Count 261 x10^3/uL (140-400) Neutrophils (%) (Auto) 74 % (31-73) H Lymphocytes (%) (Auto) 19 % (24-48) L Monocytes (%) (Auto) 7 % (0-9) Eosinophils (%) (Auto) 0 % (0-3) Basophils (%) (Auto) 1 % (0-3) Neutrophils # (Auto) 5.3 x10^3/uL (1.8-7.7) Lymphocytes # (Auto) 1.4 x10^3/uL (1.0-4.8) Monocytes # (Auto) 0.5 x10^3/uL (0.0-1.1) Eosinophils # (Auto) 0.0 x10^3/uL (0.0-0.7) Basophils # (Auto) 0.0 x10^3/uL (0.0-0.2) Sodium Level 137 mmol/L (136-145) Potassium Level 3.8 mmol/L (3.5-5.1) Chloride Level 97 mmol/L (98-107) L Carbon Dioxide Level 25 mmol/L (21-32) Anion Gap 15 (6-14) H Blood Urea Nitrogen 22 mg/dL (7-20) H Creatinine 1.3 mg/dL (0.6-1.0) H Estimated GFR (Cockcroft-Gault) 42.7 BUN/Creatinine Ratio 17 (6-20) Glucose Level 99 mg/dL (70-99) Lactic Acid Level 0.9 mmol/L (0.4-2.0) Calcium Level 9.2 mg/dL (8.5-10.1) Total Bilirubin 0.3 mg/dL (0.2-1.0) Aspartate Amino Transferase (AST) 38 U/L (15-37) H Alanine Aminotransferase (ALT) 37 U/L (14-59) Alkaline Phosphatase 115 U/L (46-116) Troponin I Quantitative < 0.017 ng/mL (0.000-0.055) NK-Pml-A-Type Natriuretic Peptide 65 pg/mL (0-124) Total Protein 8.3 g/dL (6.4-8.2) H Albumin 4.3 g/dL (3.4-5.0) Albumin/Globulin Ratio 1.1 (1.0-1.7) Influenza Type A Antigen Positive (NEGATIVE) Influenza Type B Antigen Negative (NEGATIVE) Laboratory Tests 10/25/19 10:23 Laboratory Tests 10/25/19 10:23 EKG EKG EKG interpreted by me. EKG at 1012 showed sinus tachycardia at rate of 113, noST-T wave abnormality, poor R-wave progress in anteroseptal leads, likely consistent T-wave elevation. Radiology/Procedures Radiology/Procedures [][facility] [address] [place] [address] IMAGING REPORT Signed PATIENT: LEDY CASSIDY ACCOUNT: [id number] : 1965 LOCATION: ER AGE: 54 SEX: F EXAM STATUS: REG ER ORD. PHYSICIAN: SILVINA TRAVIS MD REASON: cough and chest wall pain With RT 11:10 PROCEDURE: CHEST PA & LATERAL Chest, PA and Lateral: Technique: PA and lateral views of the chest were obtained. History: Cough, chest pain. Comparison: 12/31/2018. Findings: The heart and pulmonary vasculature appear within normal limits. The lungs are clear. The pleural margins are clear. Impression: No acute chest process is seen. Electronically signed by: Rosalino Farris MD (10/25/2019 11:39 AM) [facility] DICTATED and SIGNED BY: ROSALINO FARRIS MD DATE: 10/25/19 1132 Course & Med Decision Making Course & Med Decision Making Pertinent Labs and Imaging studies reviewed. (See chart for details) Evaluation of patient in ER showed 54-year-old smoking female patient with complaining of dizziness and cough and shortness of breath and myalgia for less than 48 hours. Patient had positive loose 8 and treated with IV fluid and Tamiflu and pain medication with improvement of her condition. I've spoken with the patient and/or caregivers. I've explained the patient's condition, diagnosis and treatment plan based on information available to me at this time. I've answered the patient's and/or caregivers questions and addressed any concerns. The patient and/or caregivers have a good understanding the patient's diagnosis, condition and treatment plan as can be expected at this point. Vital signs have been stabilized. The patient's condition is stable for discharge from the emergency department. The patient will pursue further outpatient evaluation with her primary care provider or other designated consulting physician as outlined in the discharge instructions. Patient and/or caregivers are agreeable to this plan of care and follow-up instructions have been explained in detail. The patient and/or caregivers have received these instructions in written format and expressed understanding of these discharge instructions. The patient and her caregivers are aware that if any significant change in condition or worsening of symptoms should prompt him to immediately return to this of the closest emergency de partment. If an emergent department is not readily available I would encourage him to call 911. Jihan Disclaimer Jihan Disclaimer This electronic medical record was generated, in whole or in part, using a voice recognition dictation system. Departure Departure Impression: Primary Impression: Influenza A Additional Impressions: Musculoskeletal chest pain Dehydration Tobacco abuse Renal insufficiency Disposition: 01 HOME, SELF-CARE (1223) Condition: IMPROVED Referrals: NO PCP (PCP) Patient Instructions: Chest Wall Pain, Cough, Adult, Dehydration, Adult, Influenza A (H1N1), Smoking Cessation, Tips For Success Additional Instructions: Drink plenty of liquids Follow-up with your primary care physician in 3-5 days Return to ER if not getting better Thank you for visiting [facility]. We appreciate you trusting us with your care. If any additional problems come up don't hesitate to return to visit us. Please follow up with your primary care provider so they can plan additional care if needed and know about the problem that you had. If symptoms worsen come back to the Emergency Department. Any concerning symptoms that start such as chest pain, shortness of air, weakness or numbness on one side of the body, running high fevers or any other concerning symptoms return to the ER. Scripts Albuterol Sulfate (PROAIR HFA INHALER) 8.5 Gm Hfa.aer.ad 2 PUFF IH PRN Q4-6HRS PRN for wheezing for 21 Days, #1 INHALER 0 Refills Prov: SILVINA TRAVIS MD 10/25/19 Benzonatate (TESSALON PERLE) 100 Mg Capsule 1 CAP PO TID for cough, #21 CAP Prov: SILVINA TRAVIS MD 10/25/19 Hydrocodone/Apap 5-325 (NORCO 5-325 TABLET) 1 Each Tablet 1 TAB PO PRN Q6HRS PRN for PAIN, #10 TAB 0 Refills Prov: SILVINA TRAVIS MD 10/25/19 Oseltamivir Phosphate (TAMIFLU) 75 Mg Capsule 1 CAP PO BID, #10 CAP Prov: SILVINA TRAVIS MD 10/25/19 Problem Qualifiers SILVINA TRAVIS MD Oct 25, 2019 12:26
[2019-10-25 12:36] VITALS: BP 108/60
--- NOTE | 2019-10-25 13:30 | EKG ---
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
== END 2019-10-25 12:46 | disposition home or self-care (01) ==
LOC: ER 09:57
DX: J10.1 Influenza due to other identified influenza virus with other respiratory manifestations (principal); R07.81 Pleurodynia; E86.0 Dehydration; N28.9 Disorder of kidney and ureter, unspecified; J45.909 Unspecified asthma, uncomplicated; E78.00 Pure hypercholesterolemia, unspecified; Z72.0 Tobacco use
CPT/HCPCS: 36415; 71046; 80053; 83605; 83880; 84484; 85025; 87040; 87804; 93005; 94640; 96361; 96374; 96375; 99285; J1885; J2405; J2930; J3010; J7030; J7620

== ENCOUNTER 2020-05-31 17:24 | Emergency (ER) | payer OTHER ==
[~2020-05-31] VITALS: Ht 162.6 cm; Wt 90.9 kg
[~2020-05-31 17:24] MED LIST changes: +ALBU2.5V8 IH; +HYDR-3164 PO; +OSEL75CA PO
--- NOTE | 2020-05-31 18:52 | PHYS DOC ---
Past Medical History Past Medical History: Asthma, Bronchitis, Cancer, High Cholesterol, Other Additional Past Medical Histor: Psoriasis, BREAST CA Past Surgical History: , Other Additional Past Surgical Histo: BREAST CA SX-LUMP REMOVED,L ARM,R FOOT Smoking Status: Current Every Day Smoker Alcohol Use: Occasionally Drug Use: None General Adult EDM: Chief Complaint: LOWER BACK PAIN OR INJURY HPI: HPI: The history was obtained from the patient. Patient is a 54-year-old female with no reported PMH who presents with a chief complaint of right-sided low back pain. Patient states the pain began gradually 2 days ago. 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 She denies any trauma or injury. States this morning when she woke up she was almost unable to get a bed. States the pain is a sharp pain that starts in her right lower back and radiates down her right buttocks. She denies any history of this. She denies any syncope. She denies any chest pain or shortness of breath. She denies any dysuria or hematuria. She states that movement seems to make the pain worse. She states laying flat or straighten her leg seems to make the pain worse. She has tried ibuprofen and Tylenol at home with minimal relief. She denies any unexplained weight loss. Patient denies any urinary retention, stool incontinence, saddle anesthesia, history of IV drug use, or history of cancer. Review of Systems: Review of Systems: Constitutional: Denies fever or chills. [] Eyes: Denies change in visual acuity. [] HENT: Denies nasal congestion or sore throat. [] Respiratory: Denies cough or shortness of breath. [] Cardiovascular: Denies chest pain or edema. [] GI: Denies abdominal pain, nausea, vomiting, bloody stools or diarrhea. [] : Denies dysuria. [] Musculoskeletal: Positive for right lower back pain Integument: Denies rash. [] Neurologic: Denies headache, focal weakness or sensory changes. [] Endocrine: Denies polyuria or polydipsia. [] Lymphatic: Denies swollen glands. [] Psychiatric: Denies depression or anxiety. [] Heart Score: Risk Factors: Risk Factors: DM, Current or recent (<one month) smoker, HTN, HLP, family history of CAD, obesity. Risk Scores: Score 0 - 3: 2.5% MACE over next 6 weeks - Discharge Home Score 4 - 6: 20.3% MACE over next 6 weeks - Admit for Clinical Observation Score 7 - 10: 72.7% MACE over next 6 weeks - Early Invasive Strategies Allergies: Allergies: Allergies Coded Allergies Type Severity Reaction Last Updated Verified No Known Drug Allergies 03/30/19 No Physical Exam: PE: Constitutional: Well developed, well nourished, no acute distress, non-toxic appearance. [] HENT: Normocephalic, atraumatic, bilateral external ears normal, oropharynx moist, no oral exudates, nose normal. [] Eyes: PERRLA, EOMI, conjunctiva normal, no discharge. [] Neck: Normal range of motion, no tenderness, supple, no stridor. [] Cardiovascular:Heart rate regular rhythm, no murmur [] Lungs & Thorax: Bilateral breath sounds clear to auscultation [] Abdomen: soft, no tenderness, no masses, no pulsatile masses. [] Skin: Warm, dry, no erythema, no rash. [] Back: + 5/5 motor strength in dorsiflexion and plantarflexion of the great toes bilaterally. Sensation intact between the webbing of the first and second toes bilaterally. Extremities: No tenderness, no cyanosis, no clubbing, ROM intact, no edema. [] Neurologic: Alert and oriented X 3, normal motor function, normal sensory function, no focal deficits noted. [] Psychologic: Affect normal, judgement normal, mood normal. [] Current Patient Data: Vital Signs: Vital Signs Date Time Temp Pulse Resp B/P (MAP) Pulse Ox O2 Delivery O2 Flow Rate FiO2 05/31/20 18:13 98.0 96 18 128/75 (92) 96 98.0 EKG: EKG: [] Radiology/Procedures: Radiology/Procedures: [] Course & Med Decision Making: Course & Med Decision Making Pertinent Labs and Imaging studies reviewed. (See chart for details) Patient is an uncomfortable appearing 54-year-old female who presents with chief complaint of right lower back pain that radiates down her right leg. Initial vital signs unremarkable. Physical exam reassuring. Plus 5 out of 5 motor strength in lower extremities bilaterally. No numbness or tingling reported. +2-4 patellar reflexes bilaterally. Patient symptoms are most likely musculoskeletal in nature. She may be experiencing sciatic nerve issues. Given the patient denies any urinary symptoms urinalysis will be deferred. Patient symptoms are not colicky in nature and she does not appear consistent with kidney stone. Event CT imaging will be deferred. On repeat examination after medication patient states her symptoms have improved significantly. She has been able to ambulate without difficulty. I do feel is reasonable to defer advanced imaging at this time. Patient is requesting discharge home. I do feel this is appropriate. She was given instruction to follow-up with her primary care physician in the next 2 to 3 days. She will discharge home with a short course of Medrol Dosepak. She was also encouraged on the usage of inflammatories. Return precautions discussed and understood. She is appropriate for discharge home. Jihan Disclaimer: Jihan Disclaimer: This electronic medical record was generated, in whole or in part, using a voice recognition dictation system. Departure Departure Referrals: Olive ABARCA MD (PCP) Justicifation of Admission Dx: Justifications for Admission: Justification of Admission Dx: N/A LEONEL MARI DO May 31, 2020 18:52
[2020-05-31] MEDS ORDERED: CYCLOBENZAPRINE 10 MG TABLET. PO ONE (19:00)
[2020-05-31] MEDS ORDERED: methylPREDNISolone 4 MG TABLET. PO ONE (19:00)
[2020-05-31] MEDS ORDERED: HYDROcodone/APAP 10/325 1 TAB TABLET PO ONE (19:00)
[2020-05-31] MEDS ORDERED: CYCL5TAB PO (19:56)
[2020-05-31] MEDS ORDERED: METH4TAB2 PO (19:56)
[2020-05-31 20:31] VITALS: BP 104/56
== END 2020-05-31 20:25 | disposition home or self-care (01) ==
LOC: ER 17:24
DX: M54.5 Low back pain (principal); M79.605 Pain in left leg; J45.909 Unspecified asthma, uncomplicated; E78.00 Pure hypercholesterolemia, unspecified; F17.200 Nicotine dependence, unspecified, uncomplicated
CPT/HCPCS: 99284; J7509

== ENCOUNTER 2020-07-21 12:20 | Emergency (ER) | payer SELFPAY ==
[~2020-07-21] VITALS: Ht 162.6 cm; Wt 93.0 kg
[~2020-07-21 12:20] MED LIST changes: +CYCL5TAB PO; +METH4TAB2 PO
--- NOTE | 2020-07-21 13:40 | PHYS DOC ---
Past Medical History Past Medical History: Asthma, Bronchitis, Cancer, High Cholesterol, Other Additional Past Medical Histor: Psoriasis, BREAST CA Past Surgical History: , Other Additional Past Surgical Histo: BREAST CA SX-LUMP REMOVED,L ARM,R FOOT Smoking Status: Current Every Day Smoker Alcohol Use: Occasionally Drug Use: None General Adult EDM: Chief Complaint: URINARY RETENTION HPI: HPI: Patient is a 54 year old female who presents with states she has been dribbling urine but has not been able to fully empty her bladder since last night. She states that her lower abdomen and her bladder feel like it is going to "explode". She states she also began having burning with urination last night. She has right flank pain with CVA tenderness. She has a low mid abdominal tenderness with distention of bladder. Bladder scanning upon arrival was 209 mL. Patient is straight cath if she states she cannot urinate. She states she has not been drinking any fluids because she is have not time urinating. She is rating her discomfort at a 10 out of 10. States she has having some nausea. Patient has history of CVA, ID and a defibrillator placed. She states those 3 things were 8 months ago and at [facility]. She states she is a smoker. She also has high cholesterol, bronchitis, breast cancer and asthma in the past. She states that she does take a baby aspirin but no other medications. She states she does have an inhaler. Review of Systems: Review of Systems: Constitutional: Denies fever or chills. [] Eyes: Denies change in visual acuity. [] HENT: Denies nasal congestion or sore throat. [] Respiratory: Denies cough or shortness of breath. [] Cardiovascular: Denies chest pain or edema. [] GI: +Bladder abdominal pain, +nausea, denies vomiting, bloody stools or diarrhea. [] : +Urinary retention and +dysuria. [] Musculoskeletal: +Right flank back pain or denies joint pain. [] Integument: Denies rash. [] Neurologic: Denies headache, focal weakness or sensory changes. [] Endocrine: Denies polyuria or polydipsia. [] Lymphatic: Denies swollen glands. [] Psychiatric: Denies depression or anxiety. [] Heart Score: Risk Factors: Risk Factors: DM, Current or recent (<one month) smoker, HTN, HLP, family history of CAD, obesity. Risk Scores: Score 0 - 3: 2.5% MACE over next 6 weeks - Discharge Home Score 4 - 6: 20.3% MACE over next 6 weeks - Admit for Clinical Observation Score 7 - 10: 72.7% MACE over next 6 weeks - Early Invasive Strategies Allergies: Allergies: Allergies Coded Allergies Type Severity Reaction Last Updated Verified No Known Drug Allergies 03/30/19 No Physical Exam: PE: Constitutional: Well developed, well nourished, no acute distress, non-toxic appearance. [] HENT: Normocephalic, atraumatic, bilateral external ears normal, oropharynx moist, no oral exudates, nose normal. [] Eyes: PERRLA, EOMI, conjunctiva normal, no discharge. [] Neck: Normal range of motion, no tenderness, supple, no stridor. [] Cardiovascular:Heart rate regular rhythm, no murmur [] Lungs & Thorax: Bilateral breath sounds clear to auscultation [] Abdomen: Bowel sounds normal, soft, low mid tenderness with distention of bladder, no masses, no pulsatile masses. [] Skin: Warm, dry, no erythema, no rash. [] Back: No tenderness, no CVA tenderness. [] Extremities: No tenderness, no cyanosis, no clubbing, ROM intact, no edema. [] Neurologic: Alert and oriented X 3, normal motor function, normal sensory function, no focal deficits noted. [] Psychologic: Affect normal, judgement normal, mood normal. [] EKG: EKG: [] Radiology/Procedures: Radiology/Procedures: [] Impression: [facility] [address] [place], [place] [id number] IMAGING REPORT Signed PATIENT: LEDY CASSIDY ACCOUNT: [id number] : 1965 LOCATION: ER AGE: 54 SEX: F EXAM STATUS: REG ER ORD. PHYSICIAN: ROCK ROPER APRN REASON: flank pain, abd pain, urinary retention PROCEDURE: CT ABDOMEN PELVIS WO CONTRAST Study: CT abdomen/pelvis without intravenous contrast Indication: Flank pain, abdominal pain and urinary retention. Comparison: 03/28/2019 Technique: Helical CT imaging performed of the abdomen and pelvis without the use of intravenous contrast. Sagittal and coronal reformats were obtained. One or more of the following individualized dose reduction techniques were utilized for this examination: 1. Automated exposure control 2. Adjustment of the mA and/or kV according to patient size 3. Use of iterative reconstruction technique. Findings: Inherently limited evaluation without intravenous contrast. Chest: Partially imaged ventral chest wall Loop recorder. Liver: Unchanged liver. Gallbladder/Biliary Tree: No CT manifestations of acute cholecystitis. Pancreas: Within normal limits. Spleen: Normal in size. Adrenal Glands: Unremarkable. Kidneys/Ureters/Bladder: Unchanged size of an exophytic cyst off the upper pole of the left kidney. No nephrolithiasis is identified. Unremarkable left collecting system. Mild dilatation involving portions of the right ureter and periureteral inflammatory changes best seen along the upper third of the right ureter just anterior to the psoas muscle, image 109 series 3. Small amount of gas seen within the anterior urinary bladder, image 64 series 5. Reproductive Organs: Similar size of a left ovarian cyst, image 198 series 2 measuring up to 2.5 cm. Colon: No acute abnormality. Appendix: Normal. Small Bowel: Unremarkable. Stomach: Unremarkable. Vasculature: Minimal calcific atherosclerosis. Nonaneurysmal aorta. Lymph Nodes: Within normal limits. Peritoneum and Body Wall: Previously seen mesenteric inflammation has resolved. No large volume free fluid. No pneumoperitoneum. Bones: No acute or aggressive osseous process. Scattered degenerative changes have not significantly progressed. Miscellaneous: None. Impression: 1. Small amount of gas within the urinary bladder. Minimal dilatation involving portions of the right ureter with surrounding inflammation. The constellation of findings suggest cystitis with infection ascending up the right ureter. No obstructing process is seen. Correlation with urinalysis is recommended. 2. Chronic observations detailed in the body the report. Electronically signed by: YEVGENIY MORIN MD (07/21/2020 3:02 PM) [id number] DICTATED and SIGNED BY: YEVGENIY MORIN MD DATE: 07/21/20 1505 Course & Med Decision Making: Course & Med Decision Making Pertinent Labs and Imaging studies reviewed. (See chart for details) See HPI. Patient does smell of urine. Patient states she is scribbling in her underwear. Alert and oriented x4. Ambulatory with a steady gait. Right CVA tenderness. Skin pink warm and dry. She states only deficit from her stroke was some slight slurred of speech. Patient's urinalysis shows nitrites. She is still in pain. She is given another dose of fentanyl. []Impression: 1. Small amount of gas within the urinary bladder. Minimal dilatation involving portions of the right ureter with surrounding inflammation. The constellation of findings suggest cystitis with infection ascending up the right ureter. No obstructing process is seen. Correlation with urinalysis is recommended. 2. Chronic observations detailed in the body the report. Patient was given vancomycin and Rocephin in the ED. Patient began having itching after the medications were given and I have ordered her Benadryl. There are no hives or rash seen. She denies any shortness of breath or chest tightness. Patient is stable. She is agreed to be transferred to [facility] for continuation of care with urology. I have spoken with Dr Ying Lou at [facility] and she is also the accepting physician. Patient will be transferred. Jihan Disclaimer: Jihan Disclaimer: This electronic medical record was generated, in whole or in part, using a voice recognition dictation system. Departure Departure Impression: Primary Impression: Emphysematous cystitis Disposition: 05 TRANSFER OTHER ([facility]) Condition: STABLE Referrals: NO PCP (PCP) Justicifation of Admission Dx: Justifications for Admission: Justification of Admission Dx: N/A ROCK ROPER APRN Jul 21, 2020 13:40
[2020-07-21] MEDS ORDERED: fentaNYL PF VIAL 100 MCG/2 ML VIAL IVP ONE ×2 (13:45→19:00)
[2020-07-21] MEDS ORDERED: IV NORMAL SALINE 1000ML BAG 1,000 ML IV ONE (13:45)
[2020-07-21] MEDS ORDERED: ONDANSETRON PF 4 MG/2 ML VIAL. IVP ONE (13:45)
[2020-07-21 14:23] LABS: BILIRUBIN,URINE NEGATIVE (NEG); CLARITY,URINE CLOUDY; COLOR,URINE YELLOW; NITRITE,URINE POSITIVE (NEG); PH,URINE 5.5 (<5.0-8.0); PROTEIN,URINE >=300 mg/dL (NEG-TRACE)
[2020-07-21 14:24] LABS: BASO # 0.1 x10^3/uL (0.0-0.2); BASO % 1 % (0-3); EOS # 0.1 x10^3/uL (0.0-0.7); EOS % 1 % (0-3); HEMATOCRIT 39.7 % (36.0-47.0); HEMOGLOBIN 13.7 g/dL (12.0-15.5); LYMPH # 2.1 x10^3/uL (1.0-4.8); LYMPH % 18 % (24-48); MEAN CORPUSCULAR HEMOGLOBIN 32 pg (25-35); MEAN CORPUSCULAR HGB CONC 35 g/dL (31-37); MEAN CORPUSCULAR VOLUME 93 fL (79-100); MONO # 0.6 x10^3/uL (0.0-1.1); MONO % 5 % (0-9); NEUT # 9.2 x10^3/uL (1.8-7.7); NEUT % 76 % (31-73); PLATELET COUNT 335 x10^3/uL (140-400); RED BLOOD COUNT 4.26 x10^6/uL (3.50-5.40); RED CELL DISTRIBUTION WIDTH 12.8 % (11.5-14.5); WHITE BLOOD COUNT 12.1 x10^3/uL (4.0-11.0)
[2020-07-21 14:28] LABS: BACTERIA,URINE MANY /HPF (0-FEW); RBC,URINE TNTC /HPF (0-2); SQUAMOUS EPITHELIAL CELL,UR FEW /LPF; WBC,URINE TNTC /HPF (0-4)
[2020-07-21 14:30] LABS: CALCIUM 9.3 mg/dL (8.5-10.1); CREATININE 0.6 mg/dL (0.6-1.0); GFR 104.2; POTASSIUM 3.3 mmol/L (3.5-5.1)
[2020-07-21 14:35] LABS: ALBUMIN 3.7 g/dL (3.4-5.0); TOTAL BILIRUBIN 0.5 mg/dL (0.2-1.0); TOTAL PROTEIN 7.4 g/dL (6.4-8.2)
--- NOTE | 2020-07-21 14:49 | RAD ---
Portable chest x-ray compared to PA and lateral dated October 25, 2019 for shortness of air. FINDINGS: The lungs are clear. Cardiomediastinum is grossly unremarkable. No significant soft tissue or osseous abnormalities are seen. IMPRESSION: 1. Normal chest x-ray. Electronically signed by: Shailesh Olivares MD (07/21/2020 2:46 PM) [id number]
[2020-07-21] MEDS ORDERED: cefTRIAXone IV Push 1 GM VIAL. IVP ONE (15:00)
--- NOTE | 2020-07-21 15:05 | RAD ---
Study: CT abdomen/pelvis without intravenous contrast Indication: Flank pain, abdominal pain and urinary retention. Comparison: 03/28/2019 Technique: Helical CT imaging performed of the abdomen and pelvis without the use of intravenous contrast. Sagittal and coronal reformats were obtained. One or more of the following individualized dose reduction techniques were utilized for this examination: 1. Automated exposure control 2. Adjustment of the mA and/or kV according to patient size 3. Use of iterative reconstruction technique. Findings: Inherently limited evaluation without intravenous contrast. Chest: Partially imaged ventral chest wall Loop recorder. Liver: Unchanged liver. Gallbladder/Biliary Tree: No CT manifestations of acute cholecystitis. Pancreas: Within normal limits. Spleen: Normal in size. Adrenal Glands: Unremarkable. Kidneys/Ureters/Bladder: Unchanged size of an exophytic cyst off the upper pole of the left kidney. No nephrolithiasis is identified. Unremarkable left collecting system. Mild dilatation involving portions of the right ureter and periureteral inflammatory changes best seen along the upper third of the right ureter just anterior to the psoas muscle, image 109 series 3. Small amount of gas seen within the anterior urinary bladder, image 64 series 5. Reproductive Organs: Similar size of a left ovarian cyst, image 198 series 2 measuring up to 2.5 cm. Colon: No acute abnormality. Appendix: Normal. Small Bowel: Unremarkable. Stomach: Unremarkable. Vasculature: Minimal calcific atherosclerosis. Nonaneurysmal aorta. Lymph Nodes: Within normal limits. Peritoneum and Body Wall: Previously seen mesenteric inflammation has resolved. No large volume free fluid. No pneumoperitoneum. Bones: No acute or aggressive osseous process. Scattered degenerative changes have not significantly progressed. Miscellaneous: None. Impression: 1. Small amount of gas within the urinary bladder. Minimal dilatation involving portions of the right ureter with surrounding inflammation. The constellation of findings suggest cystitis with infection ascending up the right ureter. No obstructing process is seen. Correlation with urinalysis is recommended. 2. Chronic observations detailed in the body the report. Electronically signed by: YEVGENIY MORIN MD (07/21/2020 3:02 PM) [id number]
[2020-07-21] MEDS ORDERED: VANCOMYCIN PER PHARMACY MC PRN (15:30)
[2020-07-21] MEDS ORDERED: VANCOMYCIN 2 GM in IV NORMAL SALINE 500ML BAG 500 ML IV ONE (16:00)
[2020-07-21] MEDS ORDERED: diphenhydrAMINE 50 MG/ML VIAL IVP ONE (19:00)
[2020-07-21 20:03] VITALS: BP 95/52
== END 2020-07-21 20:35 | disposition short-term general hospital (02) ==
LOC: ER 12:20
DX: N30.90 Cystitis, unspecified without hematuria (principal); R30.0 Dysuria; R10.30 Lower abdominal pain, unspecified; J45.909 Unspecified asthma, uncomplicated; E78.00 Pure hypercholesterolemia, unspecified; F17.200 Nicotine dependence, unspecified, uncomplicated; Z98.890 Other specified postprocedural states; Z85.3 Personal history of malignant neoplasm of breast; Z85.9 Personal history of malignant neoplasm, unspecified
CPT/HCPCS: 36415; 71045; 74176; 80053; 81001; 83605; 85025; 87040; 87086; 96361; 96365; 96375; 96376; 99285; J0696; J1200; J2405; J3010; J3370; J7030; J7040

== ENCOUNTER 2020-12-13 14:34 | Observation (INO) | payer BC ==
[~2020-12-13] VITALS: Ht 162.6 cm; Wt 89.8 kg
[2020-12-13] MEDS ORDERED: ACETAMINOPHEN 500 MG TABLET PO ONE (15:30)
[2020-12-13] MEDS ORDERED: predniSONE 10 MG TABLET PO ONE (15:30)
[2020-12-13] MEDS ORDERED: ASPIRIN CHEWABLE 81 MG TABLET. PO ONE (15:30)
--- NOTE | 2020-12-13 15:41 | PHYS DOC ---
Past Medical History Past Medical History: Asthma, Bronchitis, CVA, High Cholesterol, LA, Other Additional Past Medical Histor: Psoriasis, BENIGN LEFT BREAST MASS Past Surgical History: , Other Additional Past Surgical Histo: LEFT LUMPECTOMY,L ARM,R FOOT, DEFIB Smoking Status: Current Every Day Smoker Alcohol Use: Occasionally Drug Use: None General Adult EDM: Chief Complaint: COUGH HPI: HPI: Patient is a 55 year old female who presents with cough, shortness of breath, left chest pain with cough and palpation, nasal congestion with facial pain and no all she has been taking his naproxen this is been going on for the last 2 days. Patient rates her overall pain a 5 out of 10. There is no radiation of the pain. Patient has a history of psoriasis, benign breast mass removal, left lumpectomy, asthma, bronchitis, LA, smoker, CVA, hypercholesterol, , defibrillator. Review of Systems: Review of Systems: Constitutional: Denies fever or chills. [] Eyes: Denies change in visual acuity. [] HENT: + nasal congestion or denies sore throat. [] Respiratory: + cough or +shortness of breath. [] Cardiovascular: + Left chest pain with palpation for cough or denies edema. [] GI: +abdominal pain with cough, + intermittent nausea, denies vomiting, bloody stools or diarrhea. [] : Denies dysuria. [] Musculoskeletal: Denies back pain or joint pain. [] Integument: Denies rash. [] Neurologic: + Remittent facial headache, denies focal weakness or sensory changes. [] Endocrine: Denies polyuria or polydipsia. [] Lymphatic: Denies swollen glands. [] Psychiatric: Denies depression or anxiety. [] Heart Score: HEART Score for Chest Pain: HEART Score for Chest Pain Response (Comments) Value History Slighlty/Non-Suspicious 0 ECG Nonspecific Repolarizatio 1 Age >45 - < 65 1 Risk Factors >3 Risk Factors or Hx CAD 2 Troponin < Normal Limit 0 Total 4 Risk Factors: Risk Factors: DM, Current or recent (<one month) smoker, HTN, HLP, family history of CAD, obesity. Risk Scores: Score 0 - 3: 2.5% MACE over next 6 weeks - Discharge Home Score 4 - 6: 20.3% MACE over next 6 weeks - Admit for Clinical Observation Score 7 - 10: 72.7% MACE over next 6 weeks - Early Invasive Strategies Current Medications: Current Medications Medications (Trade) Dose Ordered Sig/Zofia Start Time Stop Time Status Last Admin Dose Admin Acetaminophen (Tylenol) 1,000 mg 1X ONCE 12/13/20 15:30 12/13/20 15:31 DC Aspirin (Aspirin Chewable) 324 mg 1X ONCE 12/13/20 15:30 12/13/20 15:31 DC Prednisone (Prednisone) 50 mg 1X ONCE 12/13/20 15:30 12/13/20 15:31 DC Allergies: Allergies: Allergies Coded Allergies Type Severity Reaction Last Updated Verified No Known Drug Allergies 03/30/19 No Physical Exam: PE: Constitutional: Well developed, well nourished, no acute distress, non-toxic appearance. [] HENT: Normocephalic, atraumatic, bilateral external ears normal, oropharynx moist, no oral exudates, nose normal. Sinus tenderness with palpation [] Eyes: PERRLA, EOMI, conjunctiva normal, no discharge. [] Neck: Normal range of motion, no tenderness, supple, no stridor. [] Cardiovascular:Heart rate regular rhythm, no murmur [] Lungs & Thorax: Bilateral upper breath sounds clear lower diminished to auscultation. Tenderness over left chest with palpation [] Abdomen: Bowel sounds normal, soft, no tenderness, no masses, no pulsatile masses. [] Skin: Warm, dry, no erythema, no rash. [] Back: No tenderness, no CVA tenderness. [] Extremities: No tenderness, no cyanosis, no clubbing, ROM intact, no edema. [] Neurologic: Alert and oriented X 3, normal motor function, normal sensory function, no focal deficits noted. [] Psychologic: Affect normal, judgement normal, mood normal. [] Current Patient Data: Vital Signs: Vital Signs Date Time Temp Pulse Resp B/P (MAP) Pulse Ox O2 Delivery O2 Flow Rate FiO2 12/13/20 15:09 98.1 75 16 137/76 (96) 97 Room Air 98.1 EKG: EK and read by Dr. Brooks is sinus rhythm and no STEMI Radiology/Procedures: Radiology/Procedures: [] Impression: [facility] [address] [place] [address] IMAGING REPORT Signed PATIENT: LEDY CASSIDY ACCOUNT: [id number] : 1965 LOCATION: ER AGE: 55 SEX: F EXAM STATUS: REG ER ORD. PHYSICIAN: ROCK ROPER APRN REASON: soa, cough PROCEDURE: PORTABLE CHEST 1V XR CHEST 1V History: Reason: soa, cough / Spl. Instructions: / History: Comparison: July 21, 2020 Findings: No consolidation or pleural effusion. Normal heart size. No pneumothorax. Impression: 1. No acute cardiopulmonary process. Electronically signed by: Amos Flores DO (12/13/2020 3:40 PM) [id number] DICTATED and SIGNED BY: AMOS FLORES DO DATE: 12/13/20 [id number] 0 Course & Med Decision Making: Course & Med Decision Making Pertinent Labs and Imaging studies reviewed. (See chart for details) COVID-19 CRITERIA: The patient was evaluated during the global COVID-19 pandemic, and that diagnosis was suspected/considered upon their initial presentation. Their evaluation, treatment and testing was consistent with current guidelines for patients who present with complaints or symptoms that may be related to COVID-19. See HPI. Upper breath sounds are clear and lower diminished. No extremity edema. Skin pink warm and dry. Speaks in full clear sentences. Alert and oriented x4. Facial pain with palpation over sinus. Nasal congestion. Patient denies dizziness, syncope, numbness or tingling, vomiting, diarrhea, focal weakness, fever. Heart score is a 4. Chest x-ray shows no acute findings. Blood work is unremarkable. Patient is a PUI. Patient had does have a history of an LA and she has left-sided chest pain. She will be brought in for observation. [] Dragon Disclaimer: Dragon Disclaimer: This electronic medical record was generated, in whole or in part, using a voice recognition dictation system. COVID-19 Patient Risks: Age 65 or older: No Sign of co-morbidity: Yes Exp to person + for COVID: No Exp to PUI: No Travel from affected area: No Lower respiratory symptoms: Yes Fever: No Other: Yes (nasal congestion,nausea, headache) PPE Use: Full PPE with N95 mask or PAPR: Yes Departure Departure Impression: Primary Impression: Nonspecific chest pain Additional Impressions: Person under investigation for COVID-19 Cough Nasal congestion Shortness of breath Disposition: ADMITTED INPT THIS HOSP Admitting Physician: MANISH Condition: STABLE Referrals: Olive ABARCA MD (PCP) ROCK ROPER APRN Dec 13, 2020 15:40
[2020-12-13 15:44] LABS: BASO % 1 % (0-3); EOS # 0.1 x10^3/uL (0.0-0.7); EOS % 2 % (0-3); HEMATOCRIT 39.5 % (36.0-47.0); HEMOGLOBIN 13.8 g/dL (12.0-15.5); LYMPH # 2.6 x10^3/uL (1.0-4.8); LYMPH % 34 % (24-48); MEAN CORPUSCULAR HEMOGLOBIN 33 pg (25-35); MEAN CORPUSCULAR HGB CONC 35 g/dL (31-37); MEAN CORPUSCULAR VOLUME 94 fL (79-100); MONO # 0.6 x10^3/uL (0.0-1.1); MONO % 7 % (0-9); NEUT # 4.2 x10^3/uL (1.8-7.7); NEUT % 56 % (31-73); PLATELET COUNT 296 x10^3/uL (140-400); RED BLOOD COUNT 4.19 x10^6/uL (3.50-5.40); RED CELL DISTRIBUTION WIDTH 13.1 % (11.5-14.5); WHITE BLOOD COUNT 7.6 x10^3/uL (4.0-11.0)
[2020-12-13 16:12] LABS: CALCIUM 9.2 mg/dL (8.5-10.1); CREATININE 0.5 mg/dL (0.6-1.0); GFR 128.1; POTASSIUM 3.9 mmol/L (3.5-5.1); PROTHROMBIN TIME PATIENT 12.7 SEC (11.7-14.0)
[2020-12-13 16:16] LABS: ALBUMIN 3.7 g/dL (3.4-5.0); ALBUMIN/GLOBULIN RATIO 1.2 (1.0-1.7); TOTAL BILIRUBIN 0.3 mg/dL (0.2-1.0); TOTAL PROTEIN 6.8 g/dL (6.4-8.2)
[2020-12-13] MEDS ORDERED: ACETAMINOPHEN 325 MG TABLET. PO PRN (17:00)
[2020-12-13 20:25] VITALS: BP 112/72
[2020-12-13 23:40] VITALS: BP 115/59
[2020-12-14 03:00] VITALS: BP 102/55
[2020-12-14] MEDS ORDERED: MORPHINE SULFATE 4 MG/ML VIAL. IV PRN (04:00)
--- NOTE | 2020-12-14 04:48 | EKG ---
[facility] [address] [place] [id number] Test Date: 2020-12-13 Test Time: 15:22:41 Pat Name: LEDY CASSIDY Department: Room: [facility] Gender: F Perch Machine Inspector: : 1965 Requested By: ROCK ROPER Order Number: [id number] Reading MD: Mumtaz Lew Measurements Intervals Calvin Rate: 80 P: 38 PA: 188 QRS: 40 QRSD: 80 T: 56 QT: 374 QTc: 435 Interpretive Statements SINUS RHYTHM QRS(T) CONTOUR ABNORMALITY CONSIDER ANTEROLATERAL MYOCARDIAL DAMAGE POSSIBLY ABNORMAL ECG Electronically Signed On 12-14-2020 9:23:43 COAL DELIVERER by Mumtaz Lew
[2020-12-14 07:00] VITALS: BP 208/136
--- NOTE | 2020-12-14 08:19 | PDOC1 ---
History and Physical Date of Service: DOS: DATE: 12/14/20 TIME: 08:15 Chief Complaint: Chief Complain: chest pain and SOB History of Present Illness: HPI: 55 year old female who presents with cough, shortness of breath, left chest pain with cough and palpation, nasal congestion with facial pain and no all she has been taking his naproxen this is been going on for the last 2 days. Patient rates her overall pain a 5 out of 10. There is no radiation of the pain. Patient has a history of psoriasis, benign breast mass removal, left lumpectomy, asthma, bronchitis, [place], smoker, CVA, hypercholesterol, , defibrillator. Past Medical/Surgical History: PMH/PSH: Past Medical History: Asthma, Bronchitis, CVA, High Cholesterol, [place], Psoriasis, BENIGN LEFT BREAST MASS Past Surgical History: , LEFT LUMPECTOMY,L ARM,R FOOT, DEFIB Allergies: Allergies: Coded Allergies: No Known Drug Allergies (Unverified , 03/30/19) Family History: Family History: Reviewed with no relevant findings Social History: Social History: Smoking Status: Current Every Day Smoker Alcohol Use: Occasionally Drug Use: None Current Medications: Current Medications Current Medications Aspirin (Aspirin Chewable) 324 mg 1X ONCE PO Last administered on 12/13/20at 16:13; Start 12/13/20 at 15:30; Stop 12/13/20 at 15:31; Status DC Prednisone (Prednisone) 50 mg 1X ONCE PO Last administered on 12/13/20at 16:14; Start 12/13/20 at 15:30; Stop 12/13/20 at 15:31; Status DC Acetaminophen (Tylenol) 1,000 mg 1X ONCE PO Last administered on 12/13/20at 16:14; Start 12/13/20 at 15:30; Stop 12/13/20 at 15:31; Status DC Acetaminophen (Tylenol) 650 mg PRN Q4HRS PRN PO FEVER > 100.3'F; Start 12/13/20 at 17:00; Stop 12/14/20 at 16:59 Active Scripts Active Cyclobenzaprine Hcl 5 Mg Tablet 5 Mg PO PRN TID PRN Proair Hfa Inhaler (Albuterol Sulfate) 8.5 Gm Hfa.aer.ad 2 Puff IH PRN Q4-6HRS PRN 21 Days Tessalon Perle (Benzonatate) 100 Mg Capsule 1 Cap PO TID [place] 5-325 Tablet (Acetaminophen/Hydrocodone Bitart) 1 Each Tablet 1 Tab PO PRN Q6HRS PRN Tamiflu (Oseltamivir Phosphate) 75 Mg Capsule 1 Cap PO BID [Pantoprazole] 40 MG Tablet.dr 40 Mg PO DAILYAC MDD 1 Duoneb 0.5-3(2.5) Mg/3 Ml (Albuterol/Ipratropium) 3 Ml Ampul.neb 3 Ml NEB QID 5 Days Proair Hfa Inhaler (Albuterol Sulfate) 8.5 Gm Hfa.aer.ad 2 Puff INH Q4-6HRS PRN Reported Trazodone Hcl 50 Mg Tablet 25-50 Tab PO QHS Chantix (Varenicline Tartrate) 1 Mg Tablet 1 Mg PO BID ROS: Review of Systems Review of System REVIEW OF SYSTEMS: GENERAL: Denies weakness SKIN: No bruising, hair changes or rashes. EYES: No blurred, double or loss of vision. NOSE AND THROAT: No history of nosebleeds, hoarseness or sore throat. HEART: No history of palpitations, chest pain or shortness of breath on exertion. LUNGS: Denies cough, hemoptysis, wheezing or shortness of breath. GASTROINTESTINAL: Denies changes in appetite, nausea, vomiting, diarrhea or constipation. GENITOURINARY: No history of frequency, urgency, hesitancy or nocturia. NEUROLOGIC: Denies history of numbness, tingling, or tremor. PSYCHIATRIC: No history of panic, anxiety or depression. ENDOCRINE: No history of heat or cold intolerance, polyuria or polydipsia. EXTREMITIES: Denies joint pain, pain on walking or stiffness. Physical Exam: Vital Signs: Vital Signs Date Time Temp Pulse Resp B/P (MAP) Pulse Ox O2 Delivery O2 Flow Rate FiO2 12/14/20 07:00 97.6 71 22 208/136 (160) 94 Room Air 97.6 Physcial Exam: GEN: No apparent distress. Alert and oriented HEENT: Normal cephalic, atraumatic, external auditory canals are patent EYES: Extraocular muscles are intact, pupil are equally round and reactive to light and accommodation MUSCULOSKELETAL: Well developed , well nourished, good range of motion ENDOCRINE: No thyromegaly was palpated LYMPHATICS: No cervical chain or axillary nodes were noted HEMATOPOIETIC: No bruising NECK: Supple, no JVD, no thyromegaly was noted LUNGS: Clear to auscultation in all lung mitchell without rhonchi or wheezing HEART: RRR, S!, S2 present. Peripheral pulses intact, no obvious murmurs noted ABDOMEN: Soft, nontender. Positive bowel sounds, no organomegaly, normal bowel sounds EXTREMITIES: Without clubbing, cyanosis, or edema. Pedal pulses intact. Negative Homans sign NEUROLOGIC: Normal speech and tone. A&O x 3, moves all extremities, no obvious focal deficits PSYCHIATRIC: Normal affect, normal mood. Stable SKIN: No ulcerations or rashes, good skin turgor, no jaundice VASCULAR: Good capillary refill, neurovascular bundle appears to be intact Labs: Labs: Laboratory Tests Test 12/13/20 00:45 12/13/20 15:29 12/13/20 18:20 Troponin I Quantitative < 0.017 ng/mL (0.000-0.055) < 0.017 ng/mL (0.000-0.055) < 0.017 ng/mL (0.000-0.055) White Blood Count 7.6 x10^3/uL (4.0-11.0) Red Blood Count 4.19 x10^6/uL (3.50-5.40) Hemoglobin 13.8 g/dL (12.0-15.5) Hematocrit 39.5 % (36.0-47.0) Mean Corpuscular Volume 94 fL (79-100) Mean Corpuscular Hemoglobin 33 pg (25-35) Mean Corpuscular Hemoglobin Concent 35 g/dL (31-37) Red Cell Distribution Width 13.1 % (11.5-14.5) Platelet Count 296 x10^3/uL (140-400) Neutrophils (%) (Auto) 56 % (31-73) Lymphocytes (%) (Auto) 34 % (24-48) Monocytes (%) (Auto) 7 % (0-9) Eosinophils (%) (Auto) 2 % (0-3) Basophils (%) (Auto) 1 % (0-3) Neutrophils # (Auto) 4.2 x10^3/uL (1.8-7.7) Lymphocytes # (Auto) 2.6 x10^3/uL (1.0-4.8) Monocytes # (Auto) 0.6 x10^3/uL (0.0-1.1) Eosinophils # (Auto) 0.1 x10^3/uL (0.0-0.7) Basophils # (Auto) 0.0 x10^3/uL (0.0-0.2) Prothrombin Time 12.7 SEC (11.7-14.0) Prothromb Time International Ratio 1.0 (0.8-1.1) Sodium Level 142 mmol/L (136-145) Potassium Level 3.9 mmol/L (3.5-5.1) Chloride Level 106 mmol/L (98-107) Carbon Dioxide Level 26 mmol/L (21-32) Anion Gap 10 (6-14) Blood Urea Nitrogen 18 mg/dL (7-20) Creatinine 0.5 mg/dL (0.6-1.0) Estimated GFR (Cockcroft-Gault) 128.1 BUN/Creatinine Ratio 36 (6-20) Glucose Level 116 mg/dL (70-99) Calcium Level 9.2 mg/dL (8.5-10.1) Total Bilirubin 0.3 mg/dL (0.2-1.0) Aspartate Amino Transf (AST/SGOT) 22 U/L (15-37) Alanine Aminotransferase (ALT/SGPT) 31 U/L (14-59) Alkaline Phosphatase 112 U/L (46-116) HB-Kmx-H-Type Natriuretic Peptide 30 pg/mL (0-124) Total Protein 6.8 g/dL (6.4-8.2) Albumin 3.7 g/dL (3.4-5.0) Albumin/Globulin Ratio 1.2 (1.0-1.7) Lipase 155 U/L (73-393) Laboratory Tests Test 12/13/20 15:29 12/13/20 18:20 White Blood Count 7.6 x10^3/uL (4.0-11.0) Red Blood Count 4.19 x10^6/uL (3.50-5.40) Hemoglobin 13.8 g/dL (12.0-15.5) Hematocrit 39.5 % (36.0-47.0) Mean Corpuscular Volume 94 fL (79-100) Mean Corpuscular Hemoglobin 33 pg (25-35) Mean Corpuscular Hemoglobin Concent 35 g/dL (31-37) Red Cell Distribution Width 13.1 % (11.5-14.5) Platelet Count 296 x10^3/uL (140-400) Neutrophils (%) (Auto) 56 % (31-73) Lymphocytes (%) (Auto) 34 % (24-48) Monocytes (%) (Auto) 7 % (0-9) Eosinophils (%) (Auto) 2 % (0-3) Basophils (%) (Auto) 1 % (0-3) Neutrophils # (Auto) 4.2 x10^3/uL (1.8-7.7) Lymphocytes # (Auto) 2.6 x10^3/uL (1.0-4.8) Monocytes # (Auto) 0.6 x10^3/uL (0.0-1.1) Eosinophils # (Auto) 0.1 x10^3/uL (0.0-0.7) Basophils # (Auto) 0.0 x10^3/uL (0.0-0.2) Prothrombin Time 12.7 SEC (11.7-14.0) Prothromb Time International Ratio 1.0 (0.8-1.1) Sodium Level 142 mmol/L (136-145) Potassium Level 3.9 mmol/L (3.5-5.1) Chloride Level 106 mmol/L (98-107) Carbon Dioxide Level 26 mmol/L (21-32) Anion Gap 10 (6-14) Blood Urea Nitrogen 18 mg/dL (7-20) Creatinine 0.5 mg/dL (0.6-1.0) Estimated GFR (Cockcroft-Gault) 128.1 BUN/Creatinine Ratio 36 (6-20) Glucose Level 116 mg/dL (70-99) Calcium Level 9.2 mg/dL (8.5-10.1) Total Bilirubin 0.3 mg/dL (0.2-1.0) Aspartate Amino Transf (AST/SGOT) 22 U/L (15-37) Alanine Aminotransferase (ALT/SGPT) 31 U/L (14-59) Alkaline Phosphatase 112 U/L (46-116) Troponin I Quantitative < 0.017 ng/mL (0.000-0.055) < 0.017 ng/mL (0.000-0.055) SR-Ywx-B-Type Natriuretic Peptide 30 pg/mL (0-124) Total Protein 6.8 g/dL (6.4-8.2) Albumin 3.7 g/dL (3.4-5.0) Albumin/Globulin Ratio 1.2 (1.0-1.7) Lipase 155 U/L (73-393) Images: Images CXR Impression: 1. No acute cardiopulmonary process Assessment/Plan Assessment/Plan Acute chest pain, atypical concerning for unstable angina Hx of CVA DLD Hx of [place] Cardiology consulted and evaluated. No inpatient workup needed. INstructed patient to continue her home cardiac secondary prevention medications and f/u for outpatient echo. Continue ASA and atorvastatin. Total time spent was 25 minutes in preparing scripts, discharge planning with SW and RN, and preparing this discharge summary. Patient seen and examined on day of discharge. Justifications for Admission Other Justification MARCELL WELLS MD Dec 14, 2020 08:18
[2020-12-14 08:30] VITALS: BP 116/58
[2020-12-14] MEDS ORDERED: NITROGLYCERIN SUBLINGUAL 0.4 MG BOTTLE OF 25. SL PRN (08:30)
[2020-12-14] MEDS ORDERED: DOCUSATE SODIUM 100 MG CAPSULE. PO PRN (08:30)
[2020-12-14] MEDS ORDERED: ONDANSETRON PF 4 MG/2 ML VIAL. IVP PRN (08:30)
[2020-12-14] MEDS ORDERED: MORPHINE SULFATE 2 MG/ML VIAL. IV PRN (08:30)
[2020-12-14] MEDS ORDERED: DEXTROSE 50% 25 GM / 50ML DISP.SYRIN. IV PRN (08:30)
[2020-12-14] MEDS ORDERED: SENNOSIDES 8.6 MG TABLET PO PRN (08:30)
[2020-12-14] MEDS ORDERED: ACETAMINOPHEN 325 MG TABLET. PO PRN (08:30)
[2020-12-14] MEDS ORDERED: ASPIRIN ENTERIC COATED 81 MG TABLET.DR. PO SCH (08:30)
[2020-12-14] MEDS ORDERED: LABETALOL 20 MG/4 ML DISP.SYRIN. IVP PRN (08:30)
[2020-12-14] MEDS ORDERED: ENOXAPARIN 40 MG/0.4 ML SYRINGE. SQ SCH (09:00)
--- NOTE | 2020-12-14 09:12 | PDOC2 ---
CARDIAC CONSULT DATE OF CONSULT Date of Consult DATE: 12/14/20 TIME: 09:12 REASON FOR CONSULT Reason for Consult: Chest pain REFERRING PHYSICIAN Referring Physician: Ligia Wynne APRN SOURCE Source: Chart review, Patient HISTORY OF PRESENT ILLNESS HISTORY OF PRESENT ILLNESS This is a 55 yo female who presented secondary to cough, nasal congestion, shortness of breath, and left chest pain over the last couple of days. Pain is worse with cough and deep breathing. No associated dizziness, diaphoresis, or nausea/vomiting. PAST MEDICAL HISTORY Cardiovascular: Hyperlipidemia Pulmonary: Asthma, COPD Psych: Anxiety Dermatology: Psoriasis PAST SURGICAL HISTORY Past Surgical History: Other (left breast lumpectomy ) SOCIAL HISTORY Smoke: <1 pack per day ALCOHOL: none Drugs: Crystal meth (h/o use. Quit 2015) Lives: with Family CURRENT MEDICATIONS CURRENT MEDICATIONS Current Medications Medications (Trade) Dose Ordered Sig/Zofia Route PRN Reason Start Time Stop Time Status Last Admin Dose Admin Aspirin (Aspirin Chewable) 324 mg 1X ONCE PO 12/13/20 15:30 12/13/20 15:31 DC 12/13/20 16:13 Prednisone (Prednisone) 50 mg 1X ONCE PO 12/13/20 15:30 12/13/20 15:31 DC 12/13/20 16:14 Acetaminophen (Tylenol) 1,000 mg 1X ONCE PO 12/13/20 15:30 12/13/20 15:31 DC 12/13/20 16:14 Labetalol HCl (Normodyne Iv Push) 20 mg Q2HR PRN IVP HYPERTENSION 12/14/20 08:30 12/14/20 09:10 ALLERGIES ALLERGIES: Coded Allergies: No Known Drug Allergies (Unverified , 03/30/19) ROS Review of System 14 point ROS conducted with pertinent positives noted above in HPI PHYSICAL EXAM General: Alert, Oriented X3, Cooperative, No acute distress HEENT: Atraumatic, Mucous membr. moist/pink Lungs: Clear to auscultation, Other (left chest tenderness upon palpation ) Heart: Regular rate Abdomen: Soft Extremities: No edema Skin: No significant lesion Neuro: Normal speech, Sensation intact Psych/Mental Status: Mental status NL MUSCULOSKELETAL: Osteoarthritic changes both hands VITALS/I&O VITALS/I&O: Vital Signs Date Time Temp Pulse Resp B/P (MAP) Pulse Ox O2 Delivery O2 Flow Rate FiO2 12/14/20 09:10 71 208/136 2/9/21 08:44 96 Room Air 12/14/20 07:00 97.1 22 97.1 I & O 12/13/20 12/13/20 12/14/20 15:00 23:00 07:00 Intake Total 240 ml Balance 240 ml LABS Lab: Laboratory Tests Test 12/13/20 15:29 12/13/20 18:20 White Blood Count 7.6 x10^3/uL (4.0-11.0) Red Blood Count 4.19 x10^6/uL (3.50-5.40) Hemoglobin 13.8 g/dL (12.0-15.5) Hematocrit 39.5 % (36.0-47.0) Mean Corpuscular Volume 94 fL (79-100) Mean Corpuscular Hemoglobin 33 pg (25-35) Mean Corpuscular Hemoglobin Concent 35 g/dL (31-37) Red Cell Distribution Width 13.1 % (11.5-14.5) Platelet Count 296 x10^3/uL (140-400) Neutrophils (%) (Auto) 56 % (31-73) Lymphocytes (%) (Auto) 34 % (24-48) Monocytes (%) (Auto) 7 % (0-9) Eosinophils (%) (Auto) 2 % (0-3) Basophils (%) (Auto) 1 % (0-3) Neutrophils # (Auto) 4.2 x10^3/uL (1.8-7.7) Lymphocytes # (Auto) 2.6 x10^3/uL (1.0-4.8) Monocytes # (Auto) 0.6 x10^3/uL (0.0-1.1) Eosinophils # (Auto) 0.1 x10^3/uL (0.0-0.7) Basophils # (Auto) 0.0 x10^3/uL (0.0-0.2) Prothrombin Time 12.7 SEC (11.7-14.0) Prothrombin Time INR 1.0 (0.8-1.1) Sodium Level 142 mmol/L (136-145) Potassium Level 3.9 mmol/L (3.5-5.1) Chloride Level 106 mmol/L (98-107) Carbon Dioxide Level 26 mmol/L (21-32) Anion Gap 10 (6-14) Blood Urea Nitrogen 18 mg/dL (7-20) Creatinine 0.5 mg/dL (0.6-1.0) L Estimated GFR (Cockcroft-Gault) 128.1 BUN/Creatinine Ratio 36 (6-20) H Glucose Level 116 mg/dL (70-99) H Calcium Level 9.2 mg/dL (8.5-10.1) Total Bilirubin 0.3 mg/dL (0.2-1.0) Aspartate Amino Transferase (AST) 22 U/L (15-37) Alanine Aminotransferase (ALT) 31 U/L (14-59) Alkaline Phosphatase 112 U/L (46-116) Troponin I Quantitative < 0.017 ng/mL (0.000-0.055) < 0.017 ng/mL (0.000-0.055) VM-Fth-P-Type Natriuretic Peptide 30 pg/mL (0-124) Total Protein 6.8 g/dL (6.4-8.2) Albumin 3.7 g/dL (3.4-5.0) Albumin/Globulin Ratio 1.2 (1.0-1.7) Lipase 155 U/L (73-393) Laboratory Tests 12/13/20 15:29 Laboratory Tests 12/13/20 15:29 ASSESSMENT/PLAN ASSESSMENT/PLAN 1. Cough, nasal congestion, [place]. PUI; COVID pending. CXR clear 2. Chest pain, atypical. AMI ruled out. EKG without acute changes as compared to study 10/25/19. Most probable MSK in origin 3. Hyperlipidemia 4. Tobaccoism; discussed/encouraged cessation Recommendations ASA Lipids Consider outpatient echo Okay to discharge from a CV standpoint SARAH HARRY APRN Dec 14, 2020 09:12
[2020-12-14 10:25] LABS: CHOLESTEROL/HDL RATIO 3.9
[2020-12-14 11:00] VITALS: BP 124/69
[2020-12-14 15:00] VITALS: BP 103/55
[2020-12-14] MEDS ORDERED: ATOR20TA58 PO (15:35)
[2020-12-14] MEDS ORDERED: ASPI-886 PO (15:35)
[2020-12-14] MEDS ORDERED: MORPHINE SULFATE 2 MG/ML VIAL. IVP PRN (16:15)
--- NOTE | 2020-12-14 16:22 | DISCH ---
DISCHARGE INSTRUCTIONS Condition on Discharge Condition on Discharge: Stable Activity After Discharge Activity Instructions for Disc: No restrictions, Activity as tolerated Exercise Instruction after Dis: Walk 15 min, 3 x per day, Progress as tolerated Weight Bearing Status after Di: No restrictions, Full weight bearing Diet after Discharge Diet after Discharge: Regular Diet Texture: Regular Liquid Texture: Thin Liquid Swallowing Supervision: None needed Follow-Up Follow up with: PCP within 2 weeks of dishcharge Follow Up With: Cardiology as needed Treatment/Equipment after DC Adaptive Equipment Issued: None MARCELL WELLS MD Dec 14, 2020 16:22
--- NOTE | 2020-12-14 17:09 | NUR ---
Discharge Note: LEDY CASSIDY [address] Discharge instructions and discharge home medications reviewed with patient and a copy given. All questions have been answered and understanding verbalized. The following instructions and handouts were given: Take home meds as directed. Follow up with PCP in a week regarding home meds and continuity of care. Follow up COVID test result. Watch out for severe chest pain, severe dyspnea and body weakness--go to ER Handout on non specific chest pain Discontinued lines and drains: peripheral IV intact, patien tolerated removal, no complications noted Patient discharged to home via wheelchair on room air at 1700.
--- NOTE | 2020-12-14 17:13 | NUR ---
machine unable to print, patient's telemetry reading: sinus rhythm rate 68
--- NOTE | 2020-12-14 17:30 | NUR ---
SW following for discharge planning. Spoke with RN and reviewed chart. Pt discharge home, self-care. No further SW needs at this time.
[2020-12-14] MEDS ORDERED: ATORVASTATIN CALCIUM 20 MG TABLET PO SCH (21:00)
--- NOTE | 2020-12-15 15:58 | NUR ---
IP: Informed pt of negative COVID test. Pt verbalized understanding.
== END 2020-12-14 17:00 | disposition home or self-care (01) ==
LOC: ER 14:34 → ED HOLD 16:29 → 6 SOUTH 20:25
PROVIDERS: ADMIT Family Medicine; ATTEND Family Medicine
DX: R07.89 Other chest pain (principal); Z20.822 Contact with and (suspected) exposure to COVID-19; J44.9 Chronic obstructive pulmonary disease, unspecified; I25.2 Old myocardial infarction; E78.00 Pure hypercholesterolemia, unspecified; E78.5 Hyperlipidemia, unspecified; R09.81 Nasal congestion; F17.210 Nicotine dependence, cigarettes, uncomplicated; Z86.73 Personal history of transient ischemic attack (TIA), and cerebral infarction without residual deficits; Z98.891 History of uterine scar from previous surgery; Z79.82 Long term (current) use of aspirin; Z98.890 Other specified postprocedural states
CPT/HCPCS: 36415; 71045; 80053; 80061; 83690; 83880; 84484; 85025; 85610; 93005; 96372; 99285; G0378; J1650; J7512; U0003; G0379; J3490

== ENCOUNTER 2021-06-09 17:16 | Emergency (ER) | payer BC ==
[~2021-06-09] VITALS: Ht 162.6 cm; Wt 93.0 kg
[~2021-06-09 17:16] MED LIST changes: +ASPI-886 PO; +ATOR20TA58 PO
--- NOTE | 2021-06-09 20:29 | PHYS DOC ---
Past Medical History Past Medical History: Asthma, Bronchitis, CVA, High Cholesterol, [place], Other Additional Past Medical Histor: Psoriasis, BENIGN LEFT BREAST MASS Past Surgical History: , Other Additional Past Surgical Histo: LEFT LUMPECTOMY,L ARM,R FOOT, DEFIB Smoking Status: Current Every Day Smoker Alcohol Use: Occasionally Drug Use: None General Adult EDM: Chief Complaint: HEADACHE HPI: HPI: 55-year-old female female past medical history of asthma, CVA, CAD, hypertension, hyperlipidemia, insomnia with tobacco use, presents the ED with frontal, gradual onset headache associated sore throat, frontal sinus pressure, weakness and fatigue stating " I got what everybody has at work," 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 Second Covid vaccine was Mar 31 2021. Symptoms of been present for the past 2 days. States she vomited a few times on Sunday, no further emesis but has no appetite/complains of anorexia. Review of Systems: Review of Systems: Constitutional: Denies fever or chills. [] Eyes: Denies change in visual acuity. [] HENT: Denies nasal flaring or earache Respiratory: Denies cough or shortness of breath Cardiovascular: Denies chest pain or edema. [] GI: Denies abdominal pain, bloody stools or diarrhea. [] : Denies dysuria or hematuria Musculoskeletal: Denies back pain or joint pain. [] Integument: Denies rash or diaphoresis Neurologic: Denies neck stiffness, focal weakness or sensory changes. [] Endocrine: Denies polyuria or polydipsia. [] Lymphatic: Denies swollen glands. [] Psychiatric: Denies depression or anxiety. [] Heart Score: C/O Chest Pain: No Risk Factors: Risk Factors: DM, Current or recent (<one month) smoker, HTN, HLP, family his tory of CAD, obesity. Risk Scores: Score 0 - 3: 2.5% MACE over next 6 weeks - Discharge Home Score 4 - 6: 20.3% MACE over next 6 weeks - Admit for Clinical Observation Score 7 - 10: 72.7% MACE over next 6 weeks - Early Invasive Strategies Allergies: Allergies: Allergies Coded Allergies Type Severity Reaction Last Updated Verified No Known Drug Allergies 03/30/19 No Physical Exam: PE: Constitutional: Well developed, well nourished, no acute distress, non-toxic appearance, malodorous, unkept appearance HENT: Normocephalic, atraumatic, nasal voice, dry mucous membranes Eyes: PERRLA, EOMI, conjunctiva normal, no discharge. Neck: Normal range of motion, supple, Cardiovascular: S1/2 present, regular rhythm Lungs & Thorax: Speaking in full sentences, bilateral equal chest rise, no tachypnea or increased work of breathing Abdomen: soft, no tenderness, Skin: Warm, dry, no erythema, no rash. [] Back: No tenderness, no CVA tenderness. [] Extremities: No tenderness, no cyanosis, no unilateral lower extremity edema Neurologic: Alert and oriented X 3, normal motor function, normal sensory function, no focal deficits noted. [] Psychologic: Affect normal, judgement normal, mood normal. [] EKG: EKG: [] Radiology/Procedures: Radiology/Procedures: IMAGING REPORT Signed PATIENT: LEDY CASSIDY ACCOUNT: [id number] : 1965 LOCATION: ER AGE: 55 SEX: F EXAM STATUS: REG ER ORD. PHYSICIAN: JESUS ALBERTO MONSIVAIS DO REASON: headache, pui PROCEDURE: CHEST AP ONLY XR CHEST 1V 06/09/2021 8:57 PM INDICATION: Headache COMPARISON: 12/13/2020 TECHNIQUE: Portable frontal view of the chest is provided. FINDINGS: The cardiomediastinal silhouette is within normal limits. Lungs are clear. There are no significant pleural effusions. There is no pulmonary vascular congestion. No pneumothorax. No suspicious osseous abnormality. IMPRESSION: There is no acute cardiopulmonary process. Electronically signed by: Cory Cleaning MD (06/09/2021 9:24 PM) [facility] DICTATED and SIGNED BY: COYR CLEANING MD DATE: 06/09/21 [id number] 0 Course & Med Decision Making: Course & Med Decision Making Pertinent Labs and Imaging studies reviewed. (See chart for details) COVID-19 CRITERIA: The patient was evaluated during the global COVID-19 pandemic, and that diagnosis was suspected/considered upon their initial presentation. Their evaluation, treatment and testing was consistent with current guidelines for patients who present with complaints or symptoms that may be related to COVID-19. Concern for headache in the setting of upper respiratory infection including sinusitis/pharyngitis, likely viral in origin, Covid test pending. Recommend isolation, supportive measures/rest and oral hydration. On reevaluation patient states her headache is resolved and is tolerating oral intake. Will discharge home with strict ED return precautions were given for difficulties breathing, chest pain, syncope, dyspnea, or neurologic deficits. Encouraged urgent outpatient follow-up with PMD. Life-threatening processes were considered but are low suspicion at this time, given history, physical exam and ED workup. Pt was educated on all prescription medications and adverse effects. All patient's questions were answered and pt was stable at time of discharge. Life/limb-threatening differential includes but is not limited to, airway emergency or respiratory distress/ARDS or fatigue or head or neck swelling, toxidrome, sepsis/shock, angioedema, anaphylaxis, congestive heart failure, myocarditis, acute myocardial infarction, dysrhythmias, cardiomyopathy, venous thromboembolism, pulmonary emboli, acute necrotizing hemorrhagic encephalopathy ,cerebral venous thrombosis, meningitis, encephalitis or CVA. I have spoken with the patient and/or caregivers. I explained the patient's condition, diagnoses and treatment plan based on the information available to me at this time. I have answered the patient and/or caregiver's questions and addressed any concerns. The patient and/or caregivers have a good understanding of patient's diagnosis, condition and treatment plan as can be expected at this point. Vital signs have been stable. Patient's condition is stable and appropriate for discharge from the emergency department. Patient will pursue further outpatient evaluation with primary care physician or other designated or consulting physician as outlined in the discharge instructions. The patient and/or caregivers are agreeable to this plan of care and follow-up instructions have been explained in detail. The patient and/or caregivers have received these instructions in written form and have expressed an understanding of the discharge instructions. The patient and/or caregivers are aware that any significant change of condition or worsening of symptoms should prompt immediate return to this or the closest emergency department or call to 911. Jihan Disclaimer: Jihan Disclaimer: This electronic medical record was generated, in whole or in part, using a voice recognition dictation system. Departure Departure Impression: Primary Impression: Headache Additional Impressions: Person under investigation for COVID-19 URI (upper respiratory infection) Disposition: HOME / SELF CARE / HOMELESS Condition: STABLE Referrals: Olive ABARCA MD (PCP) in 1-2 days for re-evaluation Patient Instructions: General Headache Without Cause, Sinusitis Additional Instructions: Return to ED immediately if your oxygen level drops below 90% (purchase a pulse oximetry at a medical supply store), difficulties breathing including rapid b reathing or increased work of breathing (skin sucking under ribs), chest pain or stroke-like symptoms (facial droop, speech changes, arm/leg weakness). EMERGENCY DEPARTMENT GENERAL DISCHARGE INSTRUCTIONS Thank you for coming to [facility] Emergency Department (ED) today and trusting us with you care. We trust that you had a positive experience in our Emergency Department. If you wish to speak to the department management, you may call the Director at [phone]. YOUR FOLLOW UP INSTRUCTIONS ARE FOLLOWS: 1. Do you have a private Doctor? If you do not have a private doctor, please ask for a resource list of physicians or clinics that may be able to assist you with follow up care. 2. The Emergency Physicain has interpreted your x-rays. The X-Ray specialist will also review them. If there is a change in the findings, you will be notified in 48 hours when at all possible. 3. A lab test or culture has been done, your results will be reviewed and you will be notified if you need a change in treatment. ADDITIONAL INSTRUCTIONS AND INFORMATION: 1. Your care today has been supervised by a physician who is specially trained in emergency care. Many problems require more than one evaluation for a complete diagnosis and treatment. We recommend that you schedule your follow up appointment as recommended to ensure complete treatment of you illness or injury. If you are unable to obtain follow up care and continue to have a problem, or if your condition worsens, we recommend that you return to the ED. 2. We are not able to safely determine your condition over the phone nor are we able to give sound medical advice over the phone. For these safety reasons, if you call for medical advice we will ask you to come to the ED for further evaluation. 3. If you have any questions regarding these discharge instructions please call the ED at [phone]. SAFETY INFORMATION: In the interest of safety, wellness, and injury prevention; we encourage you to wear your sealbelt, if you smoke; quite smoking, and we encourage family to use a protective helmet for bicycling and other sporting events that present an increased risk for head injury. IF YOUR SYMPTOMS WORSEN OR NEW SYMPTOMS DEVELOP, OR YOU HAVE CONCERNS ABOUT YOUR CONDITION; OR IF YOUR CONDITION WORSENS WHILE YOU ARE WAITING FOR YOUR FOLLOW UP APPOINTMENT; EITHER CONTACT YOUR PRIMARY CARE DOCTOR, THE PHYSICIAN WHOSE NAME AND NUMBER YOU WERE GIVEN, OR RETURN TO THE ED IMMEDIATELY. [facility] CENTERJESUS ALBERTO DO Jun 09, 2021 20:29
[2021-06-09] MEDS ORDERED: DEXAMETHASONE 4 MG TABLET PO ONE (20:45)
[2021-06-09] MEDS ORDERED: diphenhydrAMINE 50 MG/ML VIAL IM ONE (20:45)
[2021-06-09] MEDS ORDERED: ONDANSETRON ODT 4 MG TAB.RAPDIS. PO ONE (20:45)
[2021-06-09] MEDS ORDERED: PROCHLORPERAZINE 10 MG/2 ML VIAL. IM ONE (20:45)
--- NOTE | 2021-06-09 21:26 | RAD ---
XR CHEST 1V 06/09/2021 8:57 PM INDICATION: Headache COMPARISON: 12/13/2020 TECHNIQUE: Portable frontal view of the chest is provided. FINDINGS: The cardiomediastinal silhouette is within normal limits. Lungs are clear. There are no significant pleural effusions. There is no pulmonary vascular congestion. No pneumothora x. No suspicious osseous abnormality. IMPRESSION: There is no acute cardiopulmonary process. Electronically signed by: Julia Last MD (06/09/2021 9:24 PM) [facility]
[2021-06-09 23:22] VITALS: BP 105/59
--- NOTE | 2021-06-10 16:15 | NUR ---
IP: Attempted to contact pt concerning covid results. No answer, left a voicemail to return the call.
--- NOTE | 2021-06-13 12:26 | NUR ---
IP: Pt returned the call. Informed her of negative covid test. Pt verbalized understanding.
== END 2021-06-09 23:44 | disposition home or self-care (01) ==
LOC: ER 17:16
DX: J06.9 Acute upper respiratory infection, unspecified (principal); R51.9 Headache, unspecified; J45.909 Unspecified asthma, uncomplicated; I25.10 Atherosclerotic heart disease of native coronary artery without angina pectoris; E78.00 Pure hypercholesterolemia, unspecified; I25.2 Old myocardial infarction; F17.200 Nicotine dependence, unspecified, uncomplicated; E78.5 Hyperlipidemia, unspecified; Z20.822 Contact with and (suspected) exposure to COVID-19; Z86.73 Personal history of transient ischemic attack (TIA), and cerebral infarction without residual deficits
CPT/HCPCS: 71045; 87070; 87426; 87880; 96372; 99285; J0780; J1200; U0003; U0005

== ENCOUNTER 2021-07-19 08:58 | Emergency (ER) | payer BC ==
[~2021-07-19] VITALS: Ht 162.6 cm; Wt 99.4 kg
[2021-07-19] MEDS ORDERED: fentaNYL PF VIAL 100 MCG/2 ML VIAL IVP ONE (09:45)
--- NOTE | 2021-07-19 10:00 | PHYS DOC ---
Past Medical History Past Medical History: Asthma, Bronchitis, CVA, High Cholesterol, [place], Other Additional Past Medical Histor: Psoriasis,BENIGN LEFT BREAST MASS Past Surgical History: , Pacemaker, Other Additional Past Surgical Histo: LEFT LUMPECTOMY,L ARM,R FOOT, DEFIB Smoking Status: Former Smoker Additional Information: QUIT SMOKING MAY 2021. Alcohol Use: Rarely Drug Use: None General Adult EDM: Chief Complaint: LOWER EXT PAIN HPI: HPI: Patient is a 55 year old Female who presents with left lateral calf and thigh burning and sharp pain especially when she is up and moving her last month. She states she is used ibuprofen, Excedrin, Tylenol, Aspercreme and nothing is working. She denies weakness of the extremity, numbness or tingling, injury, skin color change, swelling, skin temperature change. 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 Patient rates her pain at a 9 out of 10 at this time. She has a history of [place], defibrillator pacemaker, stroke, A. fib, migraine, asthma, high cholesterol, psoriasis, sometimes needing to walk with a cane, quit smoking 2 months ago. Review of Systems: Review of Systems: Constitutional: Denies fever or chills. [] Eyes: Denies change in visual acuity. [] HENT: Denies nasal congestion or sore throat. [] Respiratory: Denies cough or shortness of breath. [] Cardiovascular: Denies chest pain or edema. [] GI: Denies abdominal pain, nausea, vomiting, bloody stools or diarrhea. [] : Denies dysuria. [] Musculoskeletal: Denies back pain or joint pain. +Left thigh pain [] Integument: Denies rash. [] Neurologic: Denies headache, focal weakness or sensory changes. [] Endocrine: Denies polyuria or polydipsia. [] Lymphatic: Denies swollen glands. [] Psychiatric: Denies depression or anxiety. [] Heart Score: C/O Chest Pain: No Risk Factors: Risk Factors: DM, Current or recent (<one month) smoker, HTN, HLP, family history of CAD, obesity. Risk Scores: Score 0 - 3: 2.5% MACE over next 6 weeks - Discharge Home Score 4 - 6: 20.3% MACE over next 6 weeks - Admit for Clinical Observation Score 7 - 10: 72.7% MACE over next 6 weeks - Early Invasive Strategies Current Medications: Current Medications Medications (Trade) Dose Ordered Sig/Zofia Start Time Stop Time Status Last Admin Dose Admin Fentanyl Citrate (Fentanyl 2ml Vial) 50 mcg 1X ONCE 07/19/21 09:45 07/19/21 09:46 DC Allergies: Allergies: Allergies Coded Allergies Type Severity Reaction Last Updated Verified No Known Drug Allergies 03/30/19 No Physical Exam: PE: Constitutional: Well developed, well nourished, no acute distress, non-toxic appearance. [] HENT: Normocephalic, atraumatic, bilateral external ears normal, oropharynx moist, no oral exudates, nose normal. [] Eyes: PERRLA, EOMI, conjunctiva normal, no discharge. [] Neck: Normal range of motion, no tenderness, supple, no stridor. [] Cardiovascular:Heart rate regular rhythm, no murmur [] Lungs & Thorax: Bilateral breath sounds clear to auscultation [] Abdomen: Bowel sounds normal, soft, no tenderness, no masses, no pulsatile masses. [] Skin: Warm, dry, no erythema, no rash. Psoriasis on left thigh[] Back: No tenderness, no CVA tenderness. [] Extremities: No tenderness, no cyanosis, no clubbing, ROM intact, no edema. [] Neurologic: Alert and oriented X 3, normal motor function, normal sensory function, no focal deficits noted. [] Psychologic: Affect normal, judgement normal, mood normal. [] Current Patient Data: Vital Signs: Vital Signs Date Time Temp Pulse Resp B/P (MAP) Pulse Ox O2 Delivery O2 Flow Rate FiO2 07/19/21 09:03 98.1 90 17 132/81 (98) 96 Room Air 98.1 EKG: EKG: [] Radiology/Procedures: Radiology/Procedures: [] Course & Med Decision Making: Course & Med Decision Making Pertinent Labs and Imaging studies reviewed. (See chart for details) See HPI. Alert and oriented x4. Ambulatory with a steady gait. Speaks in full clear sentences. Pedal pulse strong present. Full range of motion, no swelling, skin pink warm and dry, no deformity, no laxity of joints, no focal weakness. Full strength and movement. Sensations intact. No bruising or redness. There is psoriasis to the dorsal thigh she states that is normal for her. Blood work unremarkable. Electrolytes are normal. Patient will be sent home with lidocaine patches and to follow-up with her primary care physician. [] Jihan Disclaimer: Jihan Disclaimer: This electronic medical record was generated, in whole or in part, using a voice recognition dictation system. Departure Departure Impression: Primary Impression: Neuralgia Disposition: HOME / SELF CARE / HOMELESS Condition: STABLE Referrals: Olive ABARCA MD (PCP) Patient Instructions: Sciatica with Rehab-Sports[facility] Additional Instructions: Follow up with your primary care provider as soon as possible. Drink plenty of fluids. Scripts Lidocaine (Lidocaine PATCH ) 1 Each Adh..patch 1 EACH TP DAILY for FOR LOCAL PAIN, #7 PATCH REMOVE AFTER 12 HOURS Prov: ROCK ROPER APRN 07/19/21 ROCK ROPER APRN Jul 19, 2021 10:00
[2021-07-19 10:17] LABS: BASO # 0.1 x10^3/uL (0.0-0.2); BASO % 1 % (0-3); EOS # 0.2 x10^3/uL (0.0-0.7); EOS % 2 % (0-3); HEMATOCRIT 35.4 % (36.0-47.0); HEMOGLOBIN 12.4 g/dL (12.0-15.5); LYMPH # 3.3 x10^3/uL (1.0-4.8); LYMPH % 32 % (24-48); MEAN CORPUSCULAR HEMOGLOBIN 33 pg (25-35); MEAN CORPUSCULAR HGB CONC 35 g/dL (31-37); MEAN CORPUSCULAR VOLUME 93 fL (79-100); MONO # 0.7 x10^3/uL (0.0-1.1); MONO % 7 % (0-9); NEUT % 59 % (31-73); PLATELET COUNT 325 x10^3/uL (140-400); RED CELL DISTRIBUTION WIDTH 12.7 % (11.5-14.5); WHITE BLOOD COUNT 10.2 x10^3/uL (4.0-11.0)
[2021-07-19 10:37] LABS: CREATININE 0.6 mg/dL (0.6-1.0); GFR 103.8; POTASSIUM 3.6 mmol/L (3.5-5.1)
[2021-07-19 10:42] LABS: ALBUMIN 3.8 g/dL (3.4-5.0); ALBUMIN/GLOBULIN RATIO 1.1 (1.0-1.7); TOTAL BILIRUBIN 0.2 mg/dL (0.2-1.0); TOTAL PROTEIN 7.3 g/dL (6.4-8.2)
[2021-07-19] MEDS ORDERED: LIDO700A21 TP (10:59)
[2021-07-19] MEDS ORDERED: DEXAMETHASONE SOD PHOS 20 MG/5 ML VIAL. IV ONE (11:00)
[2021-07-19 11:15] VITALS: BP 132/66
== END 2021-07-19 11:18 | disposition home or self-care (01) ==
LOC: ER 08:58
DX: M79.2 Neuralgia and neuritis, unspecified (principal); L40.9 Psoriasis, unspecified; M79.662 Pain in left lower leg; J45.909 Unspecified asthma, uncomplicated; E78.00 Pure hypercholesterolemia, unspecified; I25.2 Old myocardial infarction; Z86.73 Personal history of transient ischemic attack (TIA), and cerebral infarction without residual deficits; Z87.891 Personal history of nicotine dependence; Z95.0 Presence of cardiac pacemaker
CPT/HCPCS: 36415; 80053; 83735; 85025; 96374; 96375; 99285; J1100; J3010